=== PATIENT | female | born 1935 | race Caucasian/White ===

== ENCOUNTER → 2017-04-21 | Outpatient (CLI) | payer MEDICARE, BC ==
[2017-04-21 12:45] LABS: Basophils % (A) 0 %; Eosinophils # (A) 0.1 k/uL (0-0.7); Eosinophils % (A) 1 %; HCT 42.7 % (34.0-46.0); HGB 13.3 gm/dL (11.4-16.0); Lymphocytes # (A) 1.3 k/uL (1.0-4.8); Lymphocytes % (A) 17 %; MCH 30.8 pg (25.0-35.0); MCHC 31.2 g/dL (31.0-37.0); MCV 98.6 fL (80.0-100.0); Mean Platelet Volume 6.7; Monocytes # (A) 0.5 k/uL (0-1.0); Monocytes % (A) 7 %; Neutrophils # (A) 5.5 k/uL (1.3-7.7); Neutrophils % (A) 72 %; Platelet Count 335 k/uL (150-450); RBC 4.33 m/uL (3.80-5.40); RDW 13.1 % (11.5-15.5); WBC 7.7 k/uL (3.8-10.6)
[2017-04-21 13:00] LABS: ALT 28 U/L (9-52); AST 27 U/L (14-36); Albumin 4.8 g/dL (3.5-5.0); Alkaline Phosphatase 84 U/L (38-126); Anion Gap 12 mmol/L; Blood Urea Nitrogen 19 mg/dL (7-17); Calcium 10.9 mg/dL (8.4-10.2); Carbon Dioxide 25 mmol/L (22-30); Chloride 93 mmol/L (98-107); Glucose 90 mg/dL (74-99); Sodium 130 mmol/L (137-145); Total Bilirubin 0.7 mg/dL (0.2-1.3)
--- NOTE | 2017-04-21 13:41 | XR ---
EXAMINATION TYPE: XR chest 2V DATE OF EXAM: 04/21/2017 COMPARISON: March 12, 2015 HISTORY: Shortness of breath TECHNIQUE: Frontal and lateral views of the chest are obtained. FINDINGS: Scattered senescent parenchymal changes noted. Hyperinflation compatible with COPD. No evidence for infiltrate. No evidence for atelectasis. Heart size is stable. Mediastinal structures are stable and grossly unremarkable. No evidence for hilar prominence. Degenerative changes dorsal spine. IMPRESSION: 1. No evidence for acute pulmonary disease.
[2017-04-21 13:46] LABS: INR 1.1 (<1.2); Prothrombin Time 10.4 sec (9.0-12.0)
== END | disposition home or self-care (01) ==
LOC: LABMAIN 11:55
PROVIDERS: ATTEND Orthopaedic Surgery
DX: M19.071 Primary osteoarthritis, right ankle and foot (principal); M20.11 Hallux valgus (acquired), right foot; M20.5X1 Other deformities of toe(s) (acquired), right foot; M79.671 Pain in right foot
CPT/HCPCS: 36415; 71046; 80053; 85025; 85610; 85730

== ENCOUNTER → 2018-10-20 | Outpatient (CLI) | payer MEDICARE, BC ==
--- NOTE | 2018-10-21 08:31 | XR ---
EXAMINATION TYPE: XR foot complete RT DATE OF EXAM: 10/20/2018 CLINICAL HISTORY: Right foot pain and neuropathy TECHNIQUE: Frontal, lateral, and oblique images of the right foot are obtained. COMPARISON: None FINDINGS: There is no acute fracture/dislocation evident in the right foot. Joint spaces of the righ t foot are narrowed diffusely with opposing surface sclerosis and small marginal osteophytes througho ut the midfoot and forefoot. There is a hallux valgus deformity and there is subluxation laterally of the first through fourth metatarsophalangeal joints. Flexion deformity of the distal interphalangeal joints and proximal interphalangeal joints limits evaluation. Diffuse osseous demineralization is se en. No radiopaque foreign body is identified. Small plantar enthesophyte and calcifications along the plantar fascia. Small vessel atherosclerosis is also noted. IMPRESSION: 1. No acute fracture or dislocation in the right foot. 2. Extensive arthropathy of the right foot, hallux valgus deformity, lateral subluxation of the first through fourth metatarsophalangeal joints, small heel spur and diffuse osseous demineralization
--- NOTE | 2018-10-21 08:41 | XR ---
EXAMINATION TYPE: XR chest 2V DATE OF EXAM: 10/20/2018 COMPARISON: 04/21/2017 HISTORY: Shortness of breath TECHNIQUE: Frontal and lateral views of the chest are obtained. FINDINGS: Right basilar somewhat linear consolidation seen in the medial right lower lobe. Otherwise lungs are clear. There is no pleural effusion or pneumothorax seen. The cardiac silhouette size is within normal limits. Tortuosity of the aorta. Degenerative changes throughout the thoracic spine. Kiser rgical clips overlying the right breast. Severe degenerative changes of the right shoulder. IMPRESSION: Medial right lower lobe linear opacity may related to atelectasis, infiltrate or confluence of vessel s.
== END | disposition home or self-care (01) ==
LOC: RADXRMAIN 16:13
PROVIDERS: ATTEND Internal Medicine
DX: M20.11 Hallux valgus (acquired), right foot (principal); M12.871 Other specific arthropathies, not elsewhere classified, right ankle and foot; S93.331A Other subluxation of right foot, initial encounter; J98.4 Other disorders of lung; Z85.3 Personal history of malignant neoplasm of breast
CPT/HCPCS: 71046; 85027; 85652

== ENCOUNTER 2019-01-25 18:36 | Emergency (ER) | payer MEDICARE, BC ==
[2019-01-25 18:51] VITALS: RESP 18
--- NOTE | 2019-01-25 19:22 | ED ---
Fall HPI - General Chief Complaint: Fall Stated Complaint: fall/neck pain Time Seen by Provider: 01/25/19 18:41 Source: patient, EMS Mode of arrival: EMS - History of Present Illness Initial Comments: This is a 3-year-old female the ER. Patient is today after fall. Fall on her right arm and her head. Patient had a trip and fall again headache daily severely hitting her right arm. She has no blood thinners. No loss of consciousness. Patient denies any other injuries no headache chest pain shortness breath or abdominal pain. MD Complaint: fall -: days(s) Fall From: standing When Fall Occurred: 1 hour [employer] Fall Witnessed: yes, by family Place Fall Occurred: home Loss of Consciousness: none Prolonged Down Time?: no Symptoms Prior to Fall: none Location: head, face Location - Extremities: Right: Hand Severity: moderate Severity scale (1-10): 3 Quality: aching Context: tripped/slipped Associated Symptoms: denies - Related Data Home Medications Medication Instructions Recorded Confirmed Anastrozole [Arimidex] 1 mg PO QAM 04/16/14 03/12/15 Atenolol [Tenormin] 25 mg PO HS 04/16/14 03/12/15 Diltiazem HCl [Diltiazem 24Hr ER] 120 mg PO QAM 04/16/14 03/12/15 Losartan [Cozaar] 50 mg PO QAM 04/16/14 03/12/15 Multivitamins, Thera [Multivitamin 1 tab PO DAILY 04/16/14 03/12/15 (formulary)] Simvastatin [Zocor] 20 mg PO HS 04/16/14 03/12/15 Spironolactone [Aldactone] 25 mg PO QAM 04/16/14 03/12/15 Calcium Carbonate [Calcium] 600 mg PO BID 03/11/15 03/12/15 Cyanocobalamin [Vitamin B-12] 500 mg PO DAILY 03/11/15 03/12/15 Magnesium Gluconate [Magonate] 500 mg PO DAILY 03/11/15 03/12/15 traMADol HCl [Ultram] 50 mg PO DAILY PRN 03/11/15 03/12/15 Furosemide [Lasix] 40 mg PO DAILY 03/12/15 03/12/15 Warfarin [Coumadin] 5 mg PO DAILY 03/12/15 03/12/15 Previous Rx's Medication Instructions Recorded Acetaminophen Tab [Tylenol] 650 mg PO Q6HR PRN #0 tab 03/15/15 Atenolol [Tenormin] 25 mg PO HS tab 03/15/15 Bisacodyl [Dulcolax] 5 mg PO DAILY PRN #0 tablet. 03/15/15 Calcium Carbonate [Tums] 1 mg PO BID chew 03/15/15 Cyanocobalamin [Vitamin B-12] 500 mcg PO DAILY tab 03/15/15 Diltiazem Cd [Cardizem CD] 120 mg PO DAILY cap.er.24h 03/15/15 Furosemide [Lasix] 40 mg PO DAILY tab 03/15/15 Magnesium Gluconate [Magonate] 500 mg PO DAILY tab 03/15/15 Multivitamins, Thera [Multivitamin 1 each PO 1200 tab 03/15/15 (formulary)] Simvastatin [Zocor] 20 mg PO HS tab 03/15/15 Spironolactone [Aldactone] 25 mg PO QAM tab 03/15/15 Warfarin [Coumadin] 5 mg PO 1800 tab 03/15/15 traMADol HCl [Ultram] 50 mg PO DAILY PRN #0 tab 03/15/15 Allergies Allergy/AdvReac Type Severity Reaction Status Date / Time codeine Allergy Nausea & Verified 03/12/15 13:46 Vomiting Review of Systems ROS Statement: Those systems with pertinent positive or pertinent negative responses have been documented in the HPI. ROS Other: All systems not noted in ROS Statement are negative. Past Medical History Past Medical History: Atrial Fibrillation, Cancer, Hyperlipidemia, Hypertension Additional Past Medical History / Comment(s): varicose veins,arthritis,breast cancer History of Any Multi-Drug Resistant Organisms: None Reported Past Surgical History: Breast Surgery, Joint Replacement, Tonsillectomy Additional Past Surgical History / Comment(s): rt hip replacement, left knee replacement, cataracts, rt partial mastectomy Past Anesthesia/Blood Transfusion Reactions: Postoperative Nausea & Vomiting (PONV) Past Psychological History: No Psychological Hx Reported Smoking Status: Former smoker Past Alcohol Use History: None Reported Past Drug Use History: None Reported - Past Family History Father Family Medical History: Cancer Additional Family Medical History / Comment(s): lung General Exam Limitations: no limitations General appearance: alert, in no apparent distress Head exam: Present: normocephalic, normal inspection. Absent: atraumatic (Patient does have abrasion to right side of face) Eye exam: Present: normal appearance, PERRL, EOMI. Absent: scleral icterus, conjunctival injection, periorbital swelling ENT exam: Present: normal exam, mucous membranes moist Neck exam: Present: normal inspection. Absent: tenderness, meningismus, lymphadenopathy Respiratory exam: Present: normal lung sounds bilaterally. Absent: respiratory distress, wheezes, rales, rhonchi, stridor Cardiovascular Exam: Present: regular rate, normal rhythm, normal heart sounds. Absent: systolic murmur, diastolic murmur, rubs, gallop, clicks GI/Abdominal exam: Present: soft, normal bowel sounds. Absent: distended, tenderness, guarding, rebound, rigid Extremities exam: Present: normal inspection, full ROM, normal capillary refill. Absent: tenderness, pedal edema, joint swelling, calf tenderness Back exam: Present: normal inspection Neurological exam: Present: alert, oriented X3, CN II-XII intact Psychiatric exam: Present: normal affect, normal mood Skin exam: Present: warm, dry, intact, normal color. Absent: rash Course Vital Signs 01/25/19 18:39 Temperature 98.2 F Pulse Rate 65 Respiratory 18 Rate Blood Pressure 173/84 O2 Sat by Pulse 98 Oximetry - Reevaluation(s) Reevaluation #1: 01/25/19 19:21 Medical records reviewed Reevaluation #2: 01/25/19 19:21 Patient remains asymptomatic Reevaluation #3: 01/25/19 20:54 Spoke with patient at length findings, questions are answered. Patient feeling good stable for discharge able to ambulate Medical Decision Making - Medical Decision Making 83 female the mechanical trip and fall prior to arrival, going to answer the door. Patient did hit her head no to medication injury noted. Patient does have small skin tear of right hand that is displaced with Dermabond and nonstick bandaging. Patient discharged home - Radiology Data Radiology results: report reviewed (CT brain C-spine negative for acute disease), image reviewed Disposition Clinical Impression: Fall, Head injury Disposition: HOME SELF-CARE Condition: Good Instructions (If sedation given, give patient instructions): Fall Prevention for Older Adults (ED) Is patient prescribed a controlled substance at d/c from ED?: No Referrals: Hood Colon MD [Primary Care Provider] - 1-2 days
--- NOTE | 2019-01-25 20:19 | CT ---
EXAMINATION TYPE: CT brain demi graham con DATE OF EXAM: 01/25/2019 COMPARISON: March 11, 2015 HISTORY: fell/neck pain CT DLP: 1448 mGycm Automated exposure control for dose reduction was used. TECHNIQUE: CT scan of the head and cervical spine are performed without contrast. FINDINGS: There is some cerebral cortical atrophy. There is no mass effect nor midline shift. There is no sign of intracranial hemorrhage. There is hypodensity in the periventricular white matter. The calvarium is intact. Cervical vertebra have fairly normal alignment. There is degenerative disc space narrowing at C5-6 an d C6-7 with spurring of the endplates. There is multilevel mild hypertrophic facet arthropathy. The s kull base is intact. There is a transverse fracture through the base of the odontoid process. There i s 3 mm posterior displacement of the odontoid process. There is a fracture through the pedicle of C1 on the left side. IMPRESSION: Cerebral atrophy and chronic small vessel ischemia. No acute intracranial abnormality. Brain unchange d. Acute fracture of the base of the odontoid process with mild posterior displacement of the odontoid. 3 mm displacement. Left pedicle fracture of C1. IMPRESSION: 1. There is no acute fracture or dislocation evident in the cervical spine. 2. No acute intracranial hemorrhage, mass effect, or midline shift is seen.
[2019-01-25 21:24] VITALS: BP 152/70; PULSE 68; TEMP 97.9
== END 2019-01-25 21:24 | disposition home or self-care (01) ==
LOC: EC 18:36
DX: S00.81XA Abrasion of other part of head, initial encounter (principal); S61.411A Laceration without foreign body of right hand, initial encounter; I48.91 Unspecified atrial fibrillation; E78.5 Hyperlipidemia, unspecified; I10 Essential (primary) hypertension; M19.90 Unspecified osteoarthritis, unspecified site; Z87.891 Personal history of nicotine dependence; Z88.5 Allergy status to narcotic agent; Z79.01 Long term (current) use of anticoagulants; Z79.899 Other long term (current) drug therapy; Z85.3 Personal history of malignant neoplasm of breast; Z96.641 Presence of right artificial hip joint; Z96.652 Presence of left artificial knee joint; Z90.11 Acquired absence of right breast and nipple; W01.0XXA Fall on same level from slipping, tripping and stumbling without subsequent striking against object, initial encounter; Y93.01 Activity, walking, marching and hiking; Y92.009 Unspecified place in unspecified non-institutional (private) residence as the place of occurrence of the external cause
CPT/HCPCS: 12001; 70450; 72125; 99284

== ENCOUNTER 2019-02-02 13:55 | Inpatient (IN) | payer MEDICARE, BC ==
[2019-02-02] MEDS ORDERED: MORPHINE SULFATE 4 MG/ML SYRINGE IM STA (14:26)
[2019-02-02] MEDS ORDERED: ONDANSETRON ODT 4 MG TAB PO STA (14:26)
[2019-02-02] MEDS ORDERED: HYDROmorphone 1 MG/ML 1 ML SYRINGE IVP STA (14:51)
--- NOTE | 2019-02-02 15:13 | ED ---
General Adult HPI - General Chief complaint: Fall Stated complaint: Fall 1 week ago- R side Pain Time Seen by Provider: 02/02/19 14:07 Source: patient, RN notes reviewed, old records reviewed Mode of arrival: wheelchair Limitations: no limitations - History of Present Illness Initial comments: 83-year-old female patient presents emergency department for neck pain and headache. Patient was initially seen on 01/25/2019 for fall with trauma to the right side of her head and neck. At the time the CAT scan displayed to impressions. The impression to bother the patient displayed no acute process. However a second impression displayed a acute fracture the base of the odontoid process with mild posterior displacement of the odontoid 3 mm displacement. Left pedicle fracture of C1. Patient was discharged from the emergency department with a recognition of the fracture. Since ejection Hospital patient has had neck pain and right temporal headaches. Patient followed up with her primary care provider who reviewed the films identify the fracture. Patient was then sent the hospital. Patient complained this time as neck pain in the C1 region as well as right temporal headaches. Daughter reports the patient has had horrible pain for the last 4 days. Denies any upper or lower extremity weakness or paresthesias. Still ambulatory. Denies any other complaints. Systemic: Pt denies fatigue, fever/chills, rash. Pt denies weakness, night sweats, weight loss. Neuro: Pt denies visual disturbances, syncope or pre-syncope. HEENT: Pt denies ocular discharge or irritation, otalgia, rhinorrhea, pharyngitis or notable lymphadenopathy. Cardiopulmonary: Pt denies chest pain, SOB, heart palpitations, dyspnea on exertion. Abdominal/GI: Pt denies abdominal pain, n/v/d. : Pt denies dysuria, burning w/ urination, frequency/urgency. Denies new onset urinary or bowel incontinence. MSK: Pt denies myalgia, loss of strength or function in extremities. Neuro: Pt denies new onset weakness, paresthesias. - Related Data Home Medications Medication Instructions Recorded Confirmed Anastrozole [Arimidex] 1 mg PO QAM 04/16/14 03/12/15 Atenolol [Tenormin] 25 mg PO HS 04/16/14 03/12/15 Diltiazem HCl [Diltiazem 24Hr ER] 120 mg PO QAM 04/16/14 03/12/15 Losartan [Cozaar] 50 mg PO QAM 04/16/14 03/12/15 Multivitamins, Thera [Multivitamin 1 tab PO DAILY 04/16/14 03/12/15 (formulary)] Simvastatin [Zocor] 20 mg PO HS 04/16/14 03/12/15 Spironolactone [Aldactone] 25 mg PO QAM 04/16/14 03/12/15 Calcium Carbonate [Calcium] 600 mg PO BID 03/11/15 03/12/15 Cyanocobalamin [Vitamin B-12] 500 mg PO DAILY 03/11/15 03/12/15 Magnesium Gluconate [Magonate] 500 mg PO DAILY 03/11/15 03/12/15 traMADol HCl [Ultram] 50 mg PO DAILY PRN 03/11/15 03/12/15 Furosemide [Lasix] 40 mg PO DAILY 03/12/15 03/12/15 Warfarin [Coumadin] 5 mg PO DAILY 03/12/15 03/12/15 Previous Rx's Medication Instructions Recorded Acetaminophen Tab [Tylenol] 650 mg PO Q6HR PRN #0 tab 03/15/15 Atenolol [Tenormin] 25 mg PO HS tab 03/15/15 Bisacodyl [Dulcolax] 5 mg PO DAILY PRN #0 tablet. 03/15/15 Calcium Carbonate [Tums] 1 mg PO BID chew 03/15/15 Cyanocobalamin [Vitamin B-12] 500 mcg PO DAILY tab 03/15/15 Diltiazem Cd [Cardizem CD] 120 mg PO DAILY cap.er.24h 03/15/15 Furosemide [Lasix] 40 mg PO DAILY tab 03/15/15 Magnesium Gluconate [Magonate] 500 mg PO DAILY tab 03/15/15 Multivitamins, Thera [Multivitamin 1 each PO 1200 tab 03/15/15 (formulary)] Simvastatin [Zocor] 20 mg PO HS tab 03/15/15 Spironolactone [Aldactone] 25 mg PO QAM tab 03/15/15 Warfarin [Coumadin] 5 mg PO 1800 tab 03/15/15 traMADol HCl [Ultram] 50 mg PO DAILY PRN #0 tab 03/15/15 Allergies Allergy/AdvReac Type Severity Reaction Status Date / Time codeine Allergy Nausea & Verified 02/02/19 14:03 Vomiting Review of Systems ROS Statement: Those systems with pertinent positive or pertinent negative responses have been documented in the HPI. ROS Other: All systems not noted in ROS Statement are negative. Past Medical History Past Medical History: Atrial Fibrillation, Cancer, Hyperlipidemia, Hypertension Additional Past Medical History / Comment(s): varicose veins,arthritis,breast c ancer History of Any Multi-Drug Resistant Organisms: None Reported Past Surgical History: Breast Surgery, Joint Replacement, Tonsillectomy Additional Past Surgical History / Comment(s): rt hip replacement, left knee replacement, cataracts, rt partial mastectomy Past Anesthesia/Blood Transfusion Reactions: Postoperative Nausea & Vomiting (PONV) Past Psychological History: No Psychological Hx Reported Smoking Status: Former smoker Past Alcohol Use History: None Reported Past Drug Use History: None Reported - Past Family History Father Family Medical History: Cancer Additional Family Medical History / Comment(s): lung General Exam - General Exam Comments Initial Comments: Constitutional: NAD, AOX3, Pt has pleasant affect. HEENT: NC/AT, trachea midline, neck supple, no lymphadenopathy. Posterior pharynx non erythematous, without exudates. External ears appear normal, without discharge. Mucous membranes moist. Eyes PERRLA, EOM intact. There is no scleral icterus. No pallor noted. Cardiopulmonary: RRR, no murmurs, rubs or gallops, no JVD noted. Lungs CTAB in anterior and posterior marrufo. No peripheral edema. Abdominal exam: Abdomen soft and non-distended. Abdomen non-tender to palpation in all 4 quadrants. Bowel sounds active in LLQ. No hepatosplenomegaly. No ecchymosis Neuro: CN II-XII intact. No nuchal rigidity. No raccon eyes, no freeman sign, no hemotympanum. Cervical spine tender in C1 region. No upper or lower extremity deficit noted. MSK Skin tear of dorsal aspect of right hand appears to be healing. Small amount of discharge noted. No streaking. No posterior calf tenderness bilaterally, homans sign negative bilaterally. Posterior tibialis and radial pulse +2 bilaterally. Sensation intact in upper and lower extremities. Full active ROM in upper and lower extremities, 5/5 stregnth. Limitations: no limitations Course Vital Signs 02/02/19 14:00 Temperature 97.9 F Pulse Rate 83 Respiratory 20 Rate Blood Pressure 158/80 O2 Sat by Pulse 99 Oximetry Medical Decision Making - Medical Decision Making 83-year-old female patient presents emergency department for neck pain and headache. Patient was initially seen on 01/25/2019 for fall with trauma to the right side of her head and neck. At the time the CAT scan displayed to impressions. The impression to bother the patient displayed no acute process. However a second impression displayed a acute fracture the base of the odontoid process with mild posterior displacement of the odontoid 3 mm displacement. Left pedicle fracture of C1. Patient was discharged from the emergency department with a recognition of the fracture. Since ejection Hospital patient has had neck pain and right temporal headaches. Patient followed up with her primary care provider who reviewed the films identify the fracture. Patient was then sent the hospital. Patient complained this time as neck pain in the C1 region as well as right temporal headaches. Daughter reports the patient has had horrible pain for the last 4 days. Denies any upper or lower extremity weakness or paresthesias. Still ambulatory. Denies any other complaints. His vital signs stable, afebrile. Physical exam displayed normal neurologic exam. Active range of motion intact strength in upper or lower extremities. No temporal tenderness, no palpable cord. Skin tear of dorsal aspect of right hand appears to be healing. No streaking. Laboratory investigations revealed mild hyponatremia of 128. BUN mildly elevated. Plain film of hand was negative. CT of brain without contrast did not display acute process. Discussed case with Sumeet GARNER for Dr. Kowalski. Films were reviewed. They did not recommend any further imaging of neck. Recommend patient be placed in a Archer J collar. There is currently none of these collars available in the department. Patient will be kept in a hard collar until a more comfortable option is available. Patient will be made the hospital for pain control and orthopedic reevaluation. Case discussed in depth with Dr. Leung. - Lab Data Result diagrams: 02/02/19 16:38 02/02/19 16:38 Lab Results 02/02/19 02/02/19 02/02/19 Range/Units 16:38 16:38 16:38 WBC 8.9 (3.8-10.6) k/uL RBC 4.03 (3.80-5.40) m/uL Hgb 13.0 (11.4-16.0) gm/dL Hct 38.4 (34.0-46.0) % MCV 95.4 (80.0-100.0) fL MCH 32.2 (25.0-35.0) pg MCHC 33.7 (31.0-37.0) g/dL RDW 12.6 (11.5-15.5) % Plt Count 344 (150-450) k/uL Neutrophils % 77 % Lymphocytes % 15 % Monocytes % 5 % Eosinophils % 1 % Basophils % 1 % Neutrophils # 6.8 (1.3-7.7) k/uL Lymphocytes # 1.3 (1.0-4.8) k/uL Monocytes # 0.5 (0-1.0) k/uL Eosinophils # 0.1 (0-0.7) k/uL Basophils # 0.0 (0-0.2) k/uL PT 14.8 H (9.0-12.0) sec INR 1.5 H (<1.2) APTT 25.0 (22.0-30.0) sec Sodium 128 L (137-145) mmol/L Potassium 4.5 (3.5-5.1) mmol/L Chloride 97 L (98-107) mmol/L Carbon Dioxide 19 L (22-30) mmol/L Anion Gap 12 mmol/L BUN 25 H (7-17) mg/dL Creatinine 1.01 (0.52-1.04) mg/dL Est GFR (CKD-EPI)AfAm 59 (>60 ml/min/1.73 sqM) Est GFR (CKD-EPI)NonAf 51 (>60 ml/min/1.73 sqM) Glucose 154 H (74-99) mg/dL Calcium 10.7 H (8.4-10.2) mg/dL Total Bilirubin 0.7 (0.2-1.3) mg/dL AST 29 (14-36) U/L ALT 23 (9-52) U/L Alkaline Phosphatase 68 (38-126) U/L Total Protein 7.4 (6.3-8.2) g/dL Albumin 4.3 (3.5-5.0) g/dL Disposition Clinical Impression: Odontoid fracture, Headache, Intractable pain Disposition: ADMITTED IP TO THIS [facility] Condition: Serious Is patient prescribed a controlled substance at d/c from ED?: No Referrals: Hood Colon MD [Primary Care Provider] - 1-2 days
[2019-02-02] MEDS ORDERED: METOCLOPRAMIDE 5 MG/ML 2 ML VIAL IVP STA (15:29)
--- NOTE | 2019-02-02 16:01 | CT ---
EXAMINATION TYPE: CT brain wo con DATE OF EXAM: 02/02/2019 COMPARISON: None HISTORY: headache CT DLP: 1099.[address] of the brain was performed. The ventricles, basal cisterns and sulci overlying the cerebral convexities demonstrate mild enlargem ent. There is no evidence for intracranial hemorrhage or sulcal effacement. There is decreased attenuation about the periventricular white matter and deep white matter of both c erebral hemispheres, compatible with chronic small vessel ischemia. Differential diagnosis does inclu de demyelination. No mass effects are seen.No midline shift. Osseous calvarium is intact. If symptoms persist consider MRI. IMPRESSION: 1. Age related atrophic and chronic small vessel ischemic change without acute intracranial process s een at this time.
--- NOTE | 2019-02-02 16:25 | XR ---
EXAMINATION TYPE: XR hand complete RT DATE OF EXAM: 02/02/2019 CLINICAL HISTORY: pain TECHNIQUE: Frontal, lateral and oblique images of the right hand are obtained. COMPARISON: None. FINDINGS: There is no acute fracture/dislocation evident. Severe degenerative change first carpal me tacarpal joint. The overlying soft tissue appears unremarkable. IMPRESSION: There is no acute fracture or dislocation ICD 10 NO FRACTURE, INITIAL EVALUATION
[2019-02-02] MEDS ORDERED: cefTRIAXone IN SWFI 1,000 MG/10 ML SYRINGE IVP STA (16:30)
[2019-02-02 16:47] LABS: Basophils % (A) 1 %; Eosinophils # (A) 0.1 k/uL (0-0.7); Eosinophils % (A) 1 %; HCT 38.4 % (34.0-46.0); Lymphocytes # (A) 1.3 k/uL (1.0-4.8); Lymphocytes % (A) 15 %; MCH 32.2 pg (25.0-35.0); MCHC 33.7 g/dL (31.0-37.0); MCV 95.4 fL (80.0-100.0); Mean Platelet Volume 6.7; Monocytes # (A) 0.5 k/uL (0-1.0); Monocytes % (A) 5 %; Neutrophils # (A) 6.8 k/uL (1.3-7.7); Neutrophils % (A) 77 %; Platelet Count 344 k/uL (150-450); RBC 4.03 m/uL (3.80-5.40); RDW 12.6 % (11.5-15.5); WBC 8.9 k/uL (3.8-10.6)
[2019-02-02 16:55] LABS: Albumin 4.3 g/dL (3.5-5.0); Calcium 10.7 mg/dL (8.4-10.2); Potassium 4.5 mmol/L (3.5-5.1); Total Bilirubin 0.7 mg/dL (0.2-1.3); Total Protein 7.4 g/dL (6.3-8.2)
[2019-02-02 16:59] LABS: INR 1.5 (<1.2); Prothrombin Time 14.8 sec (9.0-12.0)
[2019-02-02] MEDS ORDERED: SODIUM CHLORIDE 0.9% 500 ML 500 ML IV STA (17:04)
[2019-02-02] MEDS ORDERED: NALOXONE 0.4 MG/ML 1 ML VIAL IV PRN (17:24)
[2019-02-02] MEDS ORDERED: MORPHINE SULFATE 4 MG/ML SYRINGE IV PRN (17:24)
[2019-02-02] MEDS ORDERED: ONDANSETRON ODT 4 MG TAB PO PRN (17:26)
[2019-02-02] MEDS: SODIUM CHLORIDE 0.9% 1,000 ML IV SCH (18:31)
[2019-02-02] MEDS: ACETAMINOPHEN TAB 325 MG TAB PO PRN (21:46)
[2019-02-03] MEDS ORDERED: ACETAMINOPHEN TAB 325 MG TAB ONE (03:20)
[2019-02-03] MEDS: DILTIAZEM CD 120 MG CAP.ER.24H PO SCH (07:45)
[2019-02-03] MEDS: ATENOLOL 25 MG TAB PO SCH (07:45)
[2019-02-03] MEDS: ATORVASTATIN 10 MG TAB PO SCH (07:45)
[2019-02-03] MEDS: LOSARTAN 50 MG TAB PO SCH (07:46)
[2019-02-03] MEDS: ACETAMINOPHEN TAB 325 MG TAB PO PRN ×3 (07:47→21:42)
[2019-02-03] MEDS: SODIUM CHLORIDE 0.9% 1,000 ML IV SCH ×3 (07:49→19:37)
[2019-02-03] MEDS ORDERED: SPIRONOLACTONE 25 MG TAB PO SCH (09:00)
[2019-02-03] MEDS ORDERED: FUROSEMIDE 20 MG TAB PO SCH (09:00)
[2019-02-03] MEDS: traMADol 50 MG TAB PO PRN ×2 (11:35→17:17)
--- NOTE | 2019-02-03 12:15 | P.CNOR ---
History of Present Illness - [facility] Consult date: 02/03/19 Requesting physician: Abdiaziz Baker Consult reason: fracture (C2 odontoid fracture and C1 pedicle fracture), neck pain History of present illness: Patient is a very pleasant 83-year-old female who is seen and examined at bedside for further evaluation for C2 odontoid fracture and C1 pedicle fracture. Patient sustained a fall on 01/25/2019. She presented to the emergency department at that time. CT imaging was taken. She states there were no significant findings at that time and she was discharged home. She continues to experience cervical pain along with significant right-sided headache. She does have bruising on her right forearm and over the right forehead following her fall. She continues experience increase cervical pain. During evaluation [facility] department her previous cervical computed tomography scan was further reviewed which did show evidence of a C2 odontoid fracture and C1 pedicle fracture. The documentation of the fractures was previously document in the body of the report of the CT imaging did not on the impression. Patient was previously discharged home without bracing. Patient was fitted with a collar during this admission in the emergency department. Patient was experiencing significant right-sided headache at the forehead during her presentation emergency department. CT brain was performed at that time without evidence of acute findings. She was admitted for further evaluation for pain control. She continues to complain of significant right-sided headache over her right forehead. She does not feel her pain is been adequately controlled with Tylenol. She would like to avoid morphine. She is not currently experiencing any difficulty with the bilateral upper extremities. Patient states at the bedside due to her age she would like to currently work to conservative treatment options. Patient does have a medical history includes atrial fibrillation, hyperlipidemia, hypertension, and cancer. Past Medical History Past Medical History: Atrial Fibrillation, Cancer, Hyperlipidemia, Hypertension Additional Past Medical History / Comment(s): varicose veins,arthritis,breast cancer; pt states she has neuropathy in bilat feet History of Any Multi-Drug Resistant Organisms: None Reported Past Surgical History: Breast Surgery, Joint Replacement, Tonsillectomy Additional Past Surgical History / Comment(s): rt hip replacement, left knee replacement, cataracts, rt partial mastectomy Past Anesthesia/Blood Transfusion Reactions: Postoperative Nausea & Vomiting (PONV) Past Psychological History: No Psychological Hx Reported Smoking Status: Former smoker Past Alcohol Use History: None Reported Past Drug Use History: None Reported - Past Family History Father Family Medical History: Cancer Additional Family Medical History / Comment(s): lung Medications and Allergies Home Medications Medication Instructions Recorded Confirmed Type Warfarin [Coumadin] 5 mg PO DAILY 03/12/15 02/02/19 History Diltiazem Cd [Cardizem CD] 120 mg PO DAILY cap.er.24h 03/15/15 02/02/19 Rx Atenolol [Tenormin] 25 mg PO DAILY 02/02/19 02/02/19 History Candesartan Cilexetil [Atacand] 16 mg PO DAILY 02/02/19 02/02/19 History Furosemide [Lasix] 20 mg PO DAILY 02/02/19 02/02/19 History Simvastatin [Zocor] 20 mg PO DAILY 02/02/19 02/02/19 History Spironolactone [Aldactone] 25 mg PO DAILY 02/02/19 02/02/19 History Allergies Allergy/AdvReac Type Severity Reaction Status Date / Time codeine Allergy Nausea & Verified 02/02/19 18:41 Vomiting Physical Examination Physical exam: Patient is awake, alert, and oriented 3 Vital signs stable Good chest excursion with deep inspiration and expiration Abdomen soft nontender Examination of the cervical spine reveals skin is intact with no abrasions, lacerations, or bruises; no erythema, purulence or signs of infection Some pain with palpation of the posterior cervical spine Hard cervical collar intact Evidence of bruising on her right forearm Evidence of bruing and mild swelling over the right forehead Reduced of motion of the cervical spine with adequate flexion, extension, and bilateral rotation [employer] strength, thumb strength, interosseous strength, biceps strength, triceps strength, and shoulder strength positive sustained bilaterally Results Pertinent studies: CT of the head and cervical spine taken on 01/25/2019: Acute fracture the base of the odontoid process with small posterior displacement of approximately 3 mm and left C1 pedicle fracture; C5-6 and C6-7 degenerative disc disease with osteophytic spurring; multilevel facet hypertrophy; no acute intracranial hemorrhage, mass effect, or midline shift is seen X-rays of the right hand taken on 02/02/2019: No acute fracture dislocation CT of the brain taken 02/02/2019: Age-related atrophic and chronic small vessel ischemic change without evidence of acute intracranial process seen at this time - Labs Labs: Abnormal Lab Results - Last 24 Hours (Table) 02/02/19 02/02/19 Range/Units 16:38 16:38 PT 14.8 H (9.0-12.0) sec INR 1.5 H (<1.2) Sodium 128 L (137-145) mmol/L Chloride 97 L (98-107) mmol/L Carbon Dioxide 19 L (22-30) mmol/L BUN 25 H (7-17) mg/dL Glucose 154 H (74-99) mg/dL Calcium 10.7 H (8.4-10.2) mg/dL H & H 02/02/19 Range/Units 16:38 Hgb 13.0 (11.4-16.0) gm/dL Hct 38.4 (34.0-46.0) % Coagulation 02/02/19 Range/Units 16:38 INR 1.5 H (<1.2) Result Diagrams: 02/02/19 16:38 02/02/19 16:38 Assessment and Plan Assessment: Assessment: C2 odontoid fracture C1 left pedicle fracture Status post fall Cervicalgia Right-sided anterior headache C5-6 and C6-7 degenerative disc disease with anterior osteophytic spurring Cervical facet spondylosis Headache (1) C1 cervical fracture Current Visit: Yes Status: Acute Code(s): S12.000A - UNSP DISP FX OF FIRST CERVICAL VERTEBRA, INIT FOR CLOS FX SNOMED Code(s): 375363999 (2) Status post fall Current Visit: Yes Status: Acute Code(s): Z91.81 - HISTORY OF FALLING SNOMED Code(s): 161255933 (3) Cervicalgia Current Visit: Yes Status: Acute Code(s): M54.2 - CERVICALGIA SNOMED Code (s): 04614873 (4) Degeneration of C5-C6 intervertebral disc Current Visit: Yes Status: Acute Code(s): M50.322 - OTHER CERVICAL DISC DEGENERATION AT C5-C6 LEVEL SNOMED Code(s): 43801305 (5) Degeneration of intervertebral disc at C6-C7 level Current Visit: Yes Status: Acute Code(s): M50.323 - OTHER CERVICAL DISC DEGENERATION AT C6-C7 LEVEL SNOMED Code(s): 85892108 (6) Headache Current Visit: Yes Status: Acute Code(s): R51 - HEADACHE SNOMED Code(s): 45459303 (7) Intractable pain Current Visit: Yes Status: Acute Code(s): R52 - PAIN, UNSPECIFIED SNOMED Code(s): 90643793 (8) Odontoid fracture Current Visit: Yes Status: Acute Code(s): S12.110A - ANTERIOR DISPLACED TYPE II DENS FRACTURE, INIT FOR CLOS FX SNOMED Code(s): 461477302 (9) Contusion of forehead Current Visit: No Status: Acute Code(s): S00.83XA - CONTUSION OF OTHER PART OF HEAD, INITIAL ENCOUNTER SNOMED Code(s): 753618238 Plan: Plan: 1. After physical examination patient, reviewing the imaging, and further discussion with the patient, will currently planned to continue conservative treatment options. Patient does have evidence of minimally displaced C2 odontoid fracture and left C1 pedicle fracture. She was placed in a fairly flimsy hard cervical collar in the emergency department. At this time we will plan to prescribe a more robust hard cervical collar. Prescriptions written for a [place] hard cervical collar. Prescription is signed provided to case management. We discussed patient should wear this brace at all times. She may wear the brace provided the ER while showering but should keep the [place] hard cervical collar on at all other times. At this time she would like to work to conservative treatment options given her age. We did discuss if she were to fail conservative treatment options, she would be For surgical intervention. We discussed surgical intervention would entail screw placement through the odontoid. At this time, once for [place] hard collar is delivered and fitted probably, patient weekly for discharge from an orthopedic spine standpoint. We will plan have her follow-up in the outpatient setting with Dr. kevin SOSA or Dr. Jim Del Valle at [facility] in 1 week for further evaluation. 2. Continue pain control with medication as prescribed. Patient is having significant difficulty with pain control. Will currently planned to add Ultram 50 mg 1-2 tabs every 6 hours as needed for pain. She may continue with Tylenol as prescribed. She has been prescribed morphine but is avoiding this medication and like to try something not as potent. 3. Patient will continue to see exam by trauma surgery Time with Patient: Greater than 30 (Including obtaining history, physical examination, reviewing of imaging, and dictation.)
[2019-02-03 13:19] LABS: HCT 38.2 % (34.0-46.0); HGB 12.5 gm/dL (11.4-16.0); MCH 31.9 pg (25.0-35.0); MCHC 32.7 g/dL (31.0-37.0); MCV 97.3 fL (80.0-100.0); Platelet Count 286 k/uL (150-450); RBC 3.92 m/uL (3.80-5.40); RDW 12.9 % (11.5-15.5); WBC 7.1 k/uL (3.8-10.6)
[2019-02-03 13:30] LABS: INR 1.8 (<1.2); Prothrombin Time 17.5 sec (9.0-12.0)
[2019-02-03 13:43] LABS: Calcium 10.4 mg/dL (8.4-10.2); Potassium 4.7 mmol/L (3.5-5.1)
--- NOTE | 2019-02-03 14:26 | P.GSHP ---
History of Present Illness H&P Date: 02/03/19 Chief Complaint: neck pain CHIEF COMPLAINT: cervical fracture HISTORY OF PRESENT ILLNESS: 83-year-old female who recently sustained a fall on 01/25/19. Patient was evaluated in the emergency room at that time and discharged home. Patient reports since that time she has been having headaches and severe neck pain. Patient states her primary care physician reviewed her CT and immediately sent her back to the hospital. Patient denies any other concerns of complaints besides headache and neck pain. PAST MEDICAL HISTORY: See list. PAST SURGICAL HISTORY: See list. SOCIAL HISTORY: No illicit drug use. REVIEW OF SYSTEMS: CONSTITUTIONAL: Denies fever or chills. Reports recent fall. HEENT: Denies blurred vision, vision changes, or eye pain. Denies hemoptysis. Reports headaches. Reports neck pain. CARDIOVASCULAR: Denies chest pain or pressure. RESPIRATORY: No shortness of breath. GASTROINTESTINAL: Denies abdominal pain. Denies nausea or vomiting. HEMATOLOGIC: Denies bleeding disorders. GENITOURINARY: Denies any blood in urine. SKIN: Denies pruitis. Denies rash. PHYSICAL EXAM: VITAL SIGNS: Reviewed. GENERAL: Well-developed in no acute distress. HEENT: No sclera icterus. Extraocular movements grossly intact. Moist buccal mucosa. Ecchymosis on right side of forehead. Patient currently in a hard cervical collar. ABDOMEN: Soft. Nondistended. Nontender. . NEUROLOGIC: Alert and oriented. Cranial nerves II through XII grossly intact. LABORATORY DATA: Laboratory data on admission reveals white count 8.9. Hemoglobin 13.0. Platelet count .344. INR 1.5. Sodium 128. Potassium 4.5. BUN 25. Creatinine 1.01. Bilirubin 0.7. AST 29. ALT 23. IMAGIN. CT of the head and cervical spine taken on 01/25/2019: Acute fracture the base of the odontoid process with small posterior displacement of approximately 3 mm and left C1 pedicle fracture; C5-6 and C6-7 degenerative disc disease with osteophytic spurring; multilevel facet hypertrophy; no acute intracranial hemorrhage, mass effect, or midline shift is seen 2. X-rays of the right hand taken on 02/02/2019: No acute fracture dislocation 3. CT of the brain taken 02/02/2019: Age-related atrophic and chronic small vessel ischemic change without evidence of acute intracranial process seen at this time ASSESSMENT: 1. Recent fall 2. Neck pain 3. Headache 4. C2 odontoid fracture 5. C1 left pedicle fracture 6. History of atrial fibrillation, on long-term anticoagulation with Coumadin PLAN: 1. Orthopedics on consult. Plan for [place] J collar and conservative management 2. Pain control 3. No surgical intervention recommended from a general surgery standpoint 4. [facility] hospitalists consulted for medical management. Will transfer admission to their service. Nurse practitioner note has been reviewed by physician. Signing provider agrees with the documented findings, assessment, and plan of care. Past Medical History Past Medical History: Atrial Fibrillation, Cancer, Hyperlipidemia, Hypertension Additional Past Medical History / Comment(s): varicose veins,arthritis,breast cancer; pt states she has neuropathy in bilat feet History of Any Multi-Drug Resistant Organisms: None Reported Past Surgical History: Breast Surgery, Joint Replacement, Tonsillectomy Additional Past Surgical History / Comment(s): rt hip replacement, left knee replacement, cataracts, rt partial mastectomy Past Anesthesia/Blood Transfusion Reactions: Postoperative Nausea & Vomiting (PONV) Past Psychological History: No Psychological Hx Reported Smoking Status: Former smoker Past Alcohol Use History: None Reported Past Drug Use History: None Reported - Past Family History Father Family Medical History: Cancer Additional Family Medical History / Comment(s): lung Medications and Allergies Home Medications Medication Instructions Recorded Confirmed Type Warfarin [Coumadin] 5 mg PO DAILY 03/12/15 02/02/19 History Diltiazem Cd [Cardizem CD] 120 mg PO DAILY cap.er.24h 03/15/15 02/02/19 Rx Atenolol [Tenormin] 25 mg PO DAILY 02/02/19 02/02/19 History Candesartan Cilexetil [Atacand] 16 mg PO DAILY 02/02/19 02/02/19 History Furosemide [Lasix] 20 mg PO DAILY 02/02/19 02/02/19 History Simvastatin [Zocor] 20 mg PO DAILY 02/02/19 02/02/19 History Spironolactone [Aldactone] 25 mg PO DAILY 02/02/19 02/02/19 History Allergies Allergy/AdvReac Type Severity Reaction Status Date / Time codeine Allergy Nausea & Verified 02/02/19 18:41 Vomiting Surgical - Exam Vital Signs Temp Pulse Resp BP Pulse Ox 97.9 F 83 20 158/80 99 02/02/19 14:00 02/02/19 14:00 02/02/19 14:00 02/02/19 14:00 02/02/19 14:00 Results - Labs 02/03/19 12:14 02/03/19 12:14 Abnormal Lab Results - Last 24 Hours (Table) 02/02/19 02/02/19 02/03/19 Range/Units 16:38 16:38 12:14 PT 14.8 H (9.0-12.0) sec INR 1.5 H (<1.2) Sodium 128 L 131 L (137-145) mmol/L Chloride 97 L (98-107) mmol/L Carbon Dioxide 19 L (22-30) mmol/L BUN 25 H 21 H (7-17) mg/dL Glucose 154 H (74-99) mg/dL Calcium 10.7 H 10.4 H (8.4-10.2) mg/dL 02/03/19 Range/Units 12:14 PT 17.5 H (9.0-12.0) sec INR 1.8 H (<1.2) Sodium (137-145) mmol/L Chloride (98-107) mmol/L Carbon Dioxide (22-30) mmol/L BUN (7-17) mg/dL Glucose (74-99) mg/dL Calcium (8.4-10.2) mg/dL Diabetes panel 02/02/19 02/03/19 Range/Units 16:38 12:14 Sodium 128 L 131 L (137-145) mmol/L Potassium 4.5 4.7 (3.5-5.1) mmol/L Chloride 97 L 98 (98-107) mmol/L Carbon Dioxide 19 L 26 (22-30) mmol/L BUN 25 H 21 H (7-17) mg/dL Creatinine 1.01 0.83 (0.52-1.04) mg/dL Glucose 154 H 90 (74-99) mg/dL Calcium 10.7 H 10.4 H (8.4-10.2) mg/dL AST 29 (14-36) U/L ALT 23 (9-52) U/L Alkaline Phosphatase 68 (38-126) U/L Total Protein 7.4 (6.3-8.2) g/dL Albumin 4.3 (3.5-5.0) g/dL Calcium panel 02/02/19 02/03/19 Range/Units 16:38 12:14 Calcium 10.7 H 10.4 H (8.4-10.2) mg/dL Albumin 4.3 (3.5-5.0) g/dL Pituitary panel 02/02/19 02/03/19 Range/Units 16:38 12:14 Sodium 128 L 131 L (137-145) mmol/L Potassium 4.5 4.7 (3.5-5.1) mmol/L Chloride 97 L 98 (98-107) mmol/L Carbon Dioxide 19 L 26 (22-30) mmol/L BUN 25 H 21 H (7-17) mg/dL Creatinine 1.01 0.83 (0.52-1.04) mg/dL Glucose 154 H 90 (74-99) mg/dL Calcium 10.7 H 10.4 H (8.4-10.2) mg/dL Adrenal panel 02/02/19 02/03/19 Range/Units 16:38 12:14 Sodium 128 L 131 L (137-145) mmol/L Potassium 4.5 4.7 (3.5-5.1) mmol/L Chloride 97 L 98 (98-107) mmol/L Carbon Dioxide 19 L 26 (22-30) mmol/L BUN 25 H 21 H (7-17) mg/dL Creatinine 1.01 0.83 (0.52-1.04) mg/dL Glucose 154 H 90 (74-99) mg/dL Calcium 10.7 H 10.4 H (8.4-10.2) mg/dL Total Bilirubin 0.7 (0.2-1.3) mg/dL AST 29 (14-36) U/L ALT 23 (9-52) U/L Alkaline Phosphatase 68 (38-126) U/L Total Protein 7.4 (6.3-8.2) g/dL Albumin 4.3 (3.5-5.0) g/dL
[2019-02-03] MEDS ORDERED: POLYETHYLENE GLYCOL 3350 17 GM POWD.PACK PO PRN (14:40)
[2019-02-03] MEDS ORDERED: BISACODYL 5 MG TABLET.DR PO PRN (14:40)
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
[2019-02-03] MEDS: MUPIROCIN 2% OINT 22 GM TUBE TOPICAL SCH ×2 (16:25→21:42)
[2019-02-03] MEDS: WARFARIN 5 MG TAB PO SCH (17:17)
--- NOTE | 2019-02-03 21:04 | ED ---
Medical Decision Making - Medical Decision Making Addendum due to dictation errors secondary to dictation software: 83-year-old female patient presents emergency department for neck pain and headache. Patient was initially seen on 01/25/2019 for fall with trauma to the right side of her head and neck. At the time of evaluation the CT scan of brain c spine displayed two impressions. The bottom impression of the CT was read as negative. However the impression above it displayed a odontoid fracture with mild posterior displacement of the odontoid 3 mm displacement. Left pedicle fracture of C1. Patient was discharged from the emergency department at that time without recognition of the fracture. Since discharge patient has been experiencing neck pain and right temporal headaches. Patient followed up with her primary care provider who reviewed the films and identify the fracture. Patient was then sent directly to hospital. Patient complained this time as neck pain in the C1 region as well as right temporal headaches. Daughter reports the patient has had horrible pain for the last 4 days. Denies any upper or lower extremity weakness or paresthesias. Still ambulatory. Denies any other complaints. Systemic: Pt denies fatigue, fever/chills, rash. Pt denies weakness, night sweats, weight loss. Neuro: Pt denies visual disturbances, syncope or pre-syncope. HEENT: Pt denies ocular discharge or irritation, otalgia, rhinorrhea, pharyngitis or notable lymphadenopathy. Cardiopulmonary: Pt denies chest pain, SOB, heart palpitations, dyspnea on exertion. Abdominal/GI: Pt denies abdominal pain, n/v/d. : Pt denies dysuria, burning w/ urination, frequency/urgency. Denies new onset urinary or bowel incontinence. MSK: Pt denies myalgia, loss of strength or function in extremities. Neuro: Pt denies new onset weakness, paresthesias. Physical exam: Constitutional: NAD, AOX3, Pt has pleasant affect. HEENT: NC/AT, trachea midline, neck supple, no lymphadenopathy. Posterior pharynx non erythematous, without exudates. External ears appear normal, without discharge. Mucous membranes moist. Eyes PERRLA, EOM intact. There is no scleral icterus. No pallor noted. Cardiopulmonary: RRR, no murmurs, rubs or gallops, no JVD noted. Lungs CTAB in anterior and posterior marrufo. No peripheral edema. Abdominal exam: Abdomen soft and non-distended. Abdomen non-tender to palpation in all 4 quadrants. Bowel sounds active in LLQ. No hepatosplenomegaly. No ecchymosis Neuro: CN II-XII intact. No nuchal rigidity. No raccon eyes, no freeman sign, no hemotympanum. Cervical spine tender in C1 region. No upper or lower extremity deficit noted. MSK Skin tear of dorsal aspect of right hand appears to be healing. Small amount of discharge noted. No streaking. No posterior calf tenderness bilaterally, homans sign negative bilaterally. Posterior tibialis and radial pulse +2 mauricio aterally. Sensation intact in upper and lower extremities. Full active ROM in upper and lower extremities, 5/5 stregnth. MDM: 83-year-old female patient presents to emergency department with neck pain and headache. Patient was seen by her primary care provider identified a fracture on a CAT scan from 01/25. Reports that the headaches are right temporal. Patient vital signs signs are stable, afebrile. Physical exam displayed a normal neurologic exam. No deficits noted. Cervical spine tender at C1. No palpable cords sign of temporal arteritis. A CT of the brain was performed which displayed age-related atrophic and chronic small vessel ischemic changes without acute intracranial process. Case was discussed with physician casting assistant for Dr. Meghana Werner. They reviewed the films and recommended placing patient in a [place] J brace. This was not available in emergency department. Multiple attempts were made to contact outside medical supplies facilities as well as the Hospital medical supplier. They did not have the [place] J brace or any other suitable option. Multiple attempts were made to contact Dr. Kowalski which were unsuccessful. Patient was admitted with the emergency department c-collar. Patient was admitted for pain control and orthopedic management. Symptoms were much improved upon admission. Case discussed with Dr. Leung. - Lab Data Result diagrams: 02/03/19 12:14 02/03/19 12:14 Lab Results 02/02/19 02/02/19 02/02/19 Range/Units 16:38 16:38 16:38 WBC 8.9 (3.8-10.6) k/uL RBC 4.03 (3.80-5.40) m/uL Hgb 13.0 (11.4-16.0) gm/dL Hct 38.4 (34.0-46.0) % MCV 95.4 (80.0-100.0) fL MCH 32.2 (25.0-35.0) pg MCHC 33.7 (31.0-37.0) g/dL RDW 12.6 (11.5-15.5) % Plt Count 344 (150-450) k/uL Neutrophils % 77 % Lymphocytes % 15 % Monocytes % 5 % Eosinophils % 1 % Basophils % 1 % Neutrophils # 6.8 (1.3-7.7) k/uL Lymphocytes # 1.3 (1.0-4.8) k/uL Monocytes # 0.5 (0-1.0) k/uL Eosinophils # 0.1 (0-0.7) k/uL Basophils # 0.0 (0-0.2) k/uL PT 14.8 H (9.0-12.0) sec INR 1.5 H (<1.2) APTT 25.0 (22.0-30.0) sec Sodium 128 L (137-145) mmol/L Potassium 4.5 (3.5-5.1) mmol/L Chloride 97 L (98-107) mmol/L Carbon Dioxide 19 L (22-30) mmol/L Anion Gap 12 mmol/L BUN 25 H (7-17) mg/dL Creatinine 1.01 (0.52-1.04) mg/dL Est GFR (CKD-EPI)AfAm 59 (>60 ml/min/1.73 sqM) Est GFR (CKD-EPI)NonAf 51 (>60 ml/min/1.73 sqM) Glucose 154 H (74-99) mg/dL Calcium 10.7 H (8.4-10.2) mg/dL Total Bilirubin 0.7 (0.2-1.3) mg/dL AST 29 (14-36) U/L ALT 23 (9-52) U/L Alkaline Phosphatase 68 (38-126) U/L Total Protein 7.4 (6.3-8.2) g/dL Albumin 4.3 (3.5-5.0) g/dL Disposition Clinical Impression: Odontoid fracture, Headache, Intractable pain Disposition: ADMITTED IP TO THIS [facility] Condition: Serious Is patient prescribed a controlled substance at d/c from ED?: No
[2019-02-04] MEDS: ATENOLOL 25 MG TAB PO SCH (07:56)
[2019-02-04] MEDS: ATORVASTATIN 10 MG TAB PO SCH (07:56)
[2019-02-04] MEDS: LOSARTAN 50 MG TAB PO SCH (07:57)
[2019-02-04] MEDS: DILTIAZEM CD 120 MG CAP.ER.24H PO SCH (07:57)
[2019-02-04] MEDS: MUPIROCIN 2% OINT 22 GM TUBE TOPICAL SCH ×3 (07:57→23:08)
[2019-02-04] MEDS: traMADol 50 MG TAB PO PRN ×2 (08:01→17:28)
[2019-02-04 09:34] LABS: INR 2.2 (<1.2); Prothrombin Time 21.7 sec (9.0-12.0)
[2019-02-04 09:48] LABS: HGB 13.2 gm/dL (11.4-16.0); MCH 32.9 pg (25.0-35.0); MCHC 33.9 g/dL (31.0-37.0); Mean Platelet Volume 6.3; Platelet Count 320 k/uL (150-450); RBC 4.02 m/uL (3.80-5.40); RDW 12.9 % (11.5-15.5); WBC 8.3 k/uL (3.8-10.6)
[2019-02-04 10:03] LABS: Calcium 10.3 mg/dL (8.4-10.2); Potassium 4.8 mmol/L (3.5-5.1)
--- NOTE | 2019-02-04 10:18 | P.PN ---
<Anita De Guzman - Last Filed: 02/04/19 10:16> Subjective Progress Note Date: 02/04/19 CHIEF COMPLAINT: cervical fracture HISTORY OF PRESENT ILLNESS: Patient examined this morning. She is sitting up in the chair. [place] J collar has been placed. Patient continues to report neck pain and a headache, but she believes it is improved since yesterday. Tolerating diet. Denies nausea or vomiting. PHYSICAL EXAM: VITAL SIGNS: Reviewed. GENERAL: Well-developed in no acute distress. HEENT: No sclera icterus. Extraocular movements grossly intact. Moist buccal mucosa. Ecchymosis on right side of forehead. Patient currently in a hard cervical collar. ABDOMEN: Soft. Nondistended. Nontender. NEUROLOGIC: Alert and oriented. Cranial nerves II through XII grossly intact. ASSESSMENT: 1. Recent fall 2. Neck pain 3. Headache 4. C2 odontoid fracture 5. C1 left pedicle fracture 6. History of atrial fibrillation, on long-term anticoagulation with Coumadin PLAN: 1. Orthopedics on consult. [place] J collar has been obtained. Plan is for conservative management per their dictation 2. Pain control 3. Medical management per [facility] hospitalist 4. No surgical intervention recommended from a general surgery standpoint Nurse practitioner note has been reviewed by physician. Signing provider agrees with the documented findings, assessment, and plan of care. Objective - Vital Signs Vital signs: Vital Signs Temp 96.8 F L 02/04/19 05:00 Pulse 67 02/04/19 05:00 Resp 18 02/04/19 05:00 BP 158/73 02/04/19 05:00 Pulse Ox 96 02/04/19 05:00 Intake & Output 02/03/19 02/04/19 02/04/19 18:59 06:59 18:59 Intake Total 80 700 Balance 80 700 Intake: Intake, IV Titration 580 Amount Sodium Chloride 0.9% 1, 580 000 ml @ 80 mls/hr IV . [id number] [facility] Rx#:[id number] Oral 80 120 Other: Voiding Method Bedpan Bedside Commode Toilet Bedpan Bedside Commode # Voids 1 1 - Labs CBC & Chem 7: 02/04/19 08:31 02/04/19 08:31 Labs: Abnormal Lab Results - Last 24 Hours (Table) 02/03/19 02/03/19 02/04/19 Range/Units 12:14 12:14 08:31 PT 17.5 H 21.7 H (9.0-12.0) sec INR 1.8 H 2.2 H (<1.2) Sodium 131 L (137-145) mmol/L Chloride (98-107) mmol/L BUN 21 H (7-17) mg/dL Glucose (74-99) mg/dL Calcium 10.4 H (8.4-10.2) mg/dL 02/04/19 Range/Units 08:31 PT (9.0-12.0) sec INR (<1.2) Sodium 132 L (137-145) mmol/L Chloride 96 L (98-107) mmol/L BUN (7-17) mg/dL Glucose 146 H (74-99) mg/dL Calcium 10.3 H (8.4-10.2) mg/dL <Arturo Fernandez - Last Filed: 02/04/19 19:05> Subjective As above. Patient says her neck pain is improving. No surgical plans per orthopedics at this time. We'll sign off. Please call if needed. Objective - Vital Signs Vital signs: Vital Signs Temp 98.0 F 02/04/19 14:37 Pulse 54 L 02/04/19 14:37 Resp 20 02/04/19 14:37 BP 99/61 02/04/19 14:37 Pulse Ox 94 L 02/04/19 14:37 Intake & Output 02/04/19 02/04/19 02/05/19 06:59 18:59 06:59 Intake Total 700 200 Balance 700 200 Weight 76.657 kg Intake: Intake, IV Titration 580 Amount Sodium Chloride 0.9% 1, 580 000 ml @ 80 mls/hr IV . [id number] [facility] Rx#:[id number] Oral 120 200 Other: Voiding Method Bedside Commode Toilet Bedpan Bedside Commode # Voids 1 2 - Labs CBC & Chem 7: 02/04/19 08:31 02/04/19 08:31 Labs: Abnormal Lab Results - Last 24 Hours (Table) 02/04/19 02/04/19 Range/Units 08:31 08:31 PT 21.7 H (9.0-12.0) sec INR 2.2 H (<1.2) Sodium 132 L (137-145) mmol/L Chloride 96 L (98-107) mmol/L Glucose 146 H (74-99) mg/dL Calcium 10.3 H (8.4-10.2) mg/dL
[2019-02-04] MEDS: SODIUM CHLORIDE 0.9% 1,000 ML IV SCH (10:20)
--- NOTE | 2019-02-04 11:06 | CDI ---
Documentation Clarification Form Date: 02/04/2019 11:04:26 AM From: Donna Chun Admit Date: 02/02/2019 6:20:00 PM Patient Name: Aranza London Visit Number: [id number] ATTENTION: The Clinical Documentation Specialists (CDI) and [facility] Coding Staff appreciate your assistance in clarifying documentation. Please respond to the clarification below the line at the bottom and electronically sign. The CDI & [facility] Coding staff will review the response and follow-up if needed. Please note: Queries are made part of the Legal Health Record. If you have any questions, please contact the author of this message via ITS. Dr. Violette Laguna Atrial Fibrillation is documented in the in the H&P, Consults, and progress notes and requires further specificity. History/Risk Factors: HTN, Dysrythmia, OA, Atrial fib on Coumadin at home Clinical Indicators: EKG/telemetry: none ordered Treatment: Coumadin on hold for surgery Cardizem CD 120 mg PO QD In your professional opinion, can you please clarify the type of Atrial Fibrillation, if known? Chronic/Permanent Paroxysmal Persistent Other, please specify Unable to determine (Last Revision: June 2017) Paroxysmal A fib MTDD
[2019-02-04 12:01] VITALS: BMI 28.1
[2019-02-04] MEDS: ACETAMINOPHEN TAB 325 MG TAB PO PRN (12:21)
--- NOTE | 2019-02-04 14:44 | P.PN ---
Progress Note - Text Progress Note Date: 02/04/19 The patient is seen and examined today at bedside. She is feeling much better with her collar intact now. She has been able to get up out of bed and she is sitting up beside bed in a chair. She's been able to tolerate her regular diet. She's been able to void. She still has some headaches but is much more couple for her. She denies any numbness tingling in her upper extremities. She denies any weakness in her extremities. She denies any blurry vision. On exam she is afebrile stable vital signs. Chest has good excursion with deep inspiration and expiration Her neck has a collar intact. It is a [place] J collar which appears to be fitting well and is comfortable for her. She has good position and stability in the collar. Her upper extremities have 5 out of 5 strength of biceps triceps and deep submergence vehicle operator. Her lower extremity 55 muscle strength 4/5 flexion and EHL. Calves are soft non tender. Her computed tomography scan has been reviewed. I reviewed the scan in regards to her cervical spine she has significant degenerative changes but she also has an acute C2 base the and contoured fracture. There is minimal displacement. There appears to be a fracture at C1 as wellat the base of the arch . Assessment and plan Acute traumatic C2 odontoid fracture Acute traumatic C1 fracture at the base of the arch status post fall the patient is significant improved now that she has a appropriate hard cervical collar intact. I think this is giving her support for her fracture which is helping with her pain and allowing her muscles relaxed so she is alleviating her headache. She needs keep her hard collar intact all of the time 24 7. She has a traction emergency collar at bedside that she can wear when she showers. She is okay to ambulate as long she has a collar intact. Hopefully she can continue to make progress and has good potential of healing her C2 and C1 fractures with conservative treatment using the collar likely for the next 12 weeks. We would need to follow her closely as an outpatient basis to see if there is movement or displacement at the fracture site is then may require further attention or even possibly surgery. I discussed that with her and her daughters today at bedside and they understand. The area to try to continue with conservative treatment especially since the patient is doing significantly better today with her hard collar intact. From a spine standpoint is okay for the patient to be discharged home and I can follow her up in approximately 1 week time for recheck evaluation and repeat x- rays of her cervical spine. She is given appropriate instructions to continue her use of her hard collar all all times. I answered her questions best my ability G understand that she is agreeable.
[2019-02-04] MEDS: WARFARIN 5 MG TAB PO SCH (16:35)
--- NOTE | 2019-02-04 19:28 | P.PN ---
Subjective Progress Note Date: 02/04/19 (Delayed charting seen at 11:45) Principal diagnosis: Neck pain Patient is an 83-year-old female past medical history of hypertension, dyslipidemia, arthritis, atrial fibrillation on Coumadin therapy who presented to the emergency department with complaints of neck pain and headache. She was instructed to come to the hospital by her PCP, Dr. Colon, after he reviewed CT of head and neck taken 01/25 which showed Odontoid and C1 pedicle fracture. She returned to the ED on 02/02. She had a repeat head CT which showed atrophic and small vessel ischemic change without acute intracranial process. Repeat right hand xray showed no acute fracture or dislocation. Blood work demonstrated a hyponatremia at 128 and subtherapeutic INR at 1.5, She was admitted to the trauma service and ortho spine was consulted who recommended conservative management with a hard cervical collar. Her hyponatremia improved greatly with holding her diuretic therapy and continue with IV fluids. Her pain improved greatly with the addition of the cervical collar and her headache resolved. She was finally able to get up and ambulate with the cervical collar in place. Dr. Kowalski has recommended use of the collar 24 7 for approximately 12 weeks as well as close outpatient follow-up to check on the progression of her displaced fracture. Patient seen and examined at bedside. She is still having pain when up and ambulating however this is much improved with initiation of the cervical collar. Her headache is almost completely resolved at this point in time. She states she is feeling much better. She is tolerating Ultram and Tylenol well and states it is controlling her pain. She denies any nausea or vomiting. She is still having some constipation. Objective - Vital Signs Vital signs: Vital Signs Temp 98.0 F 02/04/19 14:37 Pulse 54 L 02/04/19 14:37 Resp 20 02/04/19 14:37 BP 99/61 02/04/19 14:37 Pulse Ox 94 L 02/04/19 14:37 Intake & Output 02/04/19 02/04/19 02/05/19 06:59 18:59 06:59 Intake Total 700 200 Balance 700 200 Weight 76.657 kg Intake: Intake, IV Titration 580 Amount Sodium Chloride 0.9% 1, 580 000 ml @ 80 mls/hr IV . [id number] [facility] Rx#:[id number] Oral 120 200 Other: Voiding Method Bedside Commode Toilet Bedpan Bedside Commode # Voids 1 2 - Exam General: non toxic, no distress, appears at stated age Derm: warm, dry Head: atraumatic, normocephalic, symmetric Eyes: EOMI, no lid lag, anicteric sclera Mouth: no lip lesion, mucus membranes moist, cervical collar in place Cardiovascular: S1S2 reg, no murmur, positive posterior tibial pulse bilateral, Lungs: CTA bilateral, no rhonchi, no rales , no accessory muscle use Abdominal: soft, nontender to palpation, no guarding, no appreciable organomegaly Ext: no gross muscle atrophy, no edema, no contractures Neuro: CN II-XI grossly intact, no focal neuro deficits Psych: Alert, oriented, appropriate affect - Labs CBC & Chem 7: 02/04/19 08:31 02/04/19 08:31 Labs: Abnormal Lab Results - Last 24 Hours (Table) 02/04/19 02/04/19 Range/Units 08:31 08:31 PT 21.7 H (9.0-12.0) sec INR 2.2 H (<1.2) Sodium 132 L (137-145) mmol/L Chloride 96 L (98-107) mmol/L Glucose 146 H (74-99) mg/dL Calcium 10.3 H (8.4-10.2) mg/dL Assessment and Plan Assessment: C2 odontoid fracture at C1 pedicle fracture with intractable pain, improving -Orthopedic spine recommendations appreciated -Cervical collar 24/ for 7 weeks, US ED traction collar when showering, can be out of bed if collar is inplace -PT/OT recs -ultram and tylenol as needed for pain Headache, improving - appears related to neck pain - CT head negative for acute bleed. Fall -Fall precautions -PT/OT P. Atrial fibrillation chronically anticoagulated with Coumadin -Discussed with orthopedic spine and cleared to continue Coumadin therapy -Repeat PT/INR in a.m. -Continue with atenolol and Cardizem Constipation - miralx nightly - dulcolax daily Hyponatremia, improving -Suspect secondary to dehydration -Hold Lasix and Aldactone -Continue with IV fluids X 12 hours - repeat BMP in AM Dyslipidemia -Statin therapy Right hand laceration -Cover with 4 x 4 and tape -Apply Bactroban -Monitor again in the morning if looks worse and will start oral antibiotic DVT prophylaxis: Coumadin Discussed with: Patient Anticipated discharge: 1-[address]: [facility] A total of 35 minutes was spent on the care of this complex patient more than 50% of the time was spent in counseling and care coordination.
[2019-02-04] MEDS: POLYETHYLENE GLYCOL 3350 17 GM POWD.PACK PO SCH (21:28)
[2019-02-05] MEDS: DILTIAZEM CD 120 MG CAP.ER.24H PO SCH (08:29)
[2019-02-05] MEDS: ATENOLOL 25 MG TAB PO SCH (08:29)
[2019-02-05] MEDS: MUPIROCIN 2% OINT 22 GM TUBE TOPICAL SCH ×3 (08:29→22:24)
[2019-02-05] MEDS: ATORVASTATIN 10 MG TAB PO SCH (08:29)
[2019-02-05] MEDS: traMADol 50 MG TAB PO PRN (08:36)
[2019-02-05 09:56] LABS: HCT 39.5 % (34.0-46.0); HGB 12.8 gm/dL (11.4-16.0); MCH 31.7 pg (25.0-35.0); MCHC 32.3 g/dL (31.0-37.0); MCV 98.1 fL (80.0-100.0); Mean Platelet Volume 6.7; Platelet Count 304 k/uL (150-450); RBC 4.03 m/uL (3.80-5.40); RDW 12.7 % (11.5-15.5); WBC 8.5 k/uL (3.8-10.6)
[2019-02-05 09:58] LABS: INR 2.6 (<1.2); Prothrombin Time 24.8 sec (9.0-12.0)
[2019-02-05 10:11] LABS: African American GFR (CKD) >90 (>60 ml/min/1.73 sqM); Anion Gap 10 mmol/L; Blood Urea Nitrogen 17 mg/dL (7-17); Calcium 9.9 mg/dL (8.4-10.2); Carbon Dioxide 24 mmol/L (22-30); Chloride 98 mmol/L (98-107); Glucose 128 mg/dL (74-99); Non-African American GFR(CKD) 78 (>60 ml/min/1.73 sqM); Potassium 4.4 mmol/L (3.5-5.1); Sodium 132 mmol/L (137-145)
[2019-02-05] MEDS: ACETAMINOPHEN TAB 325 MG TAB PO PRN ×2 (11:30→17:45)
[2019-02-05] MEDS: LOSARTAN 50 MG TAB PO SCH (11:32)
--- NOTE | 2019-02-05 13:18 | P.PN ---
Subjective Progress Note Date: 02/05/19 Principal diagnosis: Neck pain Patient is an 83-year-old female past medical history of hypertension, dyslipidemia, arthritis, atrial fibrillation on Coumadin therapy who presented to the emergency department with complaints of neck pain and headache. She was instructed to come to the hospital by her PCP, Dr. Colon, after he reviewed CT of head and neck taken 01/25 which showed Odontoid and C1 pedicle fracture. She returned to the ED on 02/02. She had a repeat head CT which showed atrophic and small vessel ischemic change without acute intracranial process. Repeat right hand xray showed no acute fracture or dislocation. Blood work demonstrated a hyponatremia at 128 and subtherapeutic INR at 1.5, She was admitted to the trauma service and ortho spine was consulted who recommended conservative management with a hard cervical collar. Her hyponatremia improved greatly with holding her diuretic therapy and continue with IV fluids. Her pain improved greatly with the addition of the cervical collar and her headache resolved. She was finally able to get up and ambulate with the cervical collar in place. Dr. Kowalski has recommended use of the collar 01/10 for approximately 12 weeks as well as close outpatient follow-up to check on the progression of her displaced fracture. She did have worsening of her chronic constipation during her hospital stay. Patient seen and examined at bedside. She is still constipated despite miralax, it does not appear dulcolax has been take as a prn yet. Some increased pain today as she was up and moving alot yesterday. No chest pain or shortness of breath. No nausea or vomiting. Headache is back today. Objective - Vital Signs Vital signs: Vital Signs Temp 97.5 F L 02/05/19 06:27 Pulse 60 02/05/19 06:27 Resp 18 02/05/19 06:27 BP 135/60 02/05/19 06:27 Pulse Ox 94 L 02/05/19 06:27 Intake & Output 02/04/19 02/05/19 02/05/19 18:59 06:59 18:59 Intake Total 200 320 320 Balance 200 320 320 Weight 76.657 kg Intake: Intake, IV Titration 320 Amount Sodium Chloride 0.9% 1, 320 000 ml @ 80 mls/hr IV . [id number] [facility] Rx#:[id number] Oral 200 320 Other: Voiding Method Toilet Toilet Bedside Commode Bedside Commode # Voids 2 2 - Exam General: non toxic, no distress, appears at stated age Derm: warm, dry Head: bruising and abrasion over right forehead, normocephalic, symmetric Eyes: EOMI, no lid lag, anicteric sclera Mouth: no lip lesion, mucus membranes moist, cervical collar in place Cardiovascular: S1S2 reg, no murmur, positive posterior tibial pulse bilateral, Lungs: CTA bilateral, no rhonchi, no rales , no accessory muscle use Abdominal: soft, nontender to palpation, no guarding, no appreciable organomegaly Ext: no gross muscle atrophy, no edema, no contractures Neuro: CN II-XI grossly intact, no focal neuro deficits Psych: Alert, oriented, appropriate affect - Labs CBC & Chem 7: 02/05/19 09:12 02/05/19 09:12 Labs: Abnormal Lab Results - Last 24 Hours (Table) 02/05/19 02/05/19 Range/Units 09:12 09:12 PT 24.8 H (9.0-12.0) sec INR 2.6 H (<1.2) Sodium 132 L (137-145) mmol/L Glucose 128 H (74-99) mg/dL Assessment and Plan Assessment: C2 odontoid fracture at C1 pedicle fracture with intractable pain, improving -Orthopedic spine recommendations appreciated -Cervical collar / for 7 weeks, ED traction collar when showering, can be out of bed if collar is inplace -PT/OT recs -ultram and tylenol as needed for pain Headache, improving - appears related to neck pain - CT head negative for acute bleed. Constipation - miralx nightly - dulcolax daily - d/w nursing Fall -Fall precautions -PT/OT P. Atrial fibrillation chronically anticoagulated with Coumadin -Discussed with orthopedic spine and cleared to continue Coumadin therapy -Repeat PT/INR in a.m., coumadin dosing per pharmacy -Continue with atenolol and Cardizem Hyponatremia, improving -Suspect secondary to dehydration -Hold Lasix and Aldactone -Continue with IV fluids X 12 hours - repeat BMP in AM Dyslipidemia -Statin therapy Right hand laceration -Cover with 4 x 4 and tape -Apply Bactroban DVT prophylaxis: Coumadin Discussed with: Patient Anticipated discharge: in AM Anticipated discharge place: [facility] A total of 35 minutes was spent on the care of this complex patient more than 50% of the time was spent in counseling and care coordination.
[2019-02-05] MEDS: BISACODYL 5 MG TABLET.DR PO SCH (13:53)
[2019-02-05] MEDS: WARFARIN 5 MG TAB PO SCH (17:47)
[2019-02-05] MEDS ORDERED: LACTULOSE 20 GM/30 ML CUP PO ONE (18:49)
--- NOTE | 2019-02-05 19:55 | XR ---
EXAMINATION TYPE: XR KUB DATE OF EXAM: 02/05/2019 COMPARISON: NONE HISTORY: Constipation TECHNIQUE: Single view supine FINDINGS: There is no sign of intestinal obstruction or pneumoperitoneum. Fecal pattern is normal. Th ere is no sign of a mass. There is multilevel spondylotic change in the lumbar spine. There is right hip prosthesis. There is no evidence of a mass. IMPRESSION: Nonacute abdomen.
[2019-02-05] MEDS: POLYETHYLENE GLYCOL 3350 17 GM POWD.PACK PO SCH (22:24)
[2019-02-05 23:00] VITALS: RESP 16
[2019-02-06 04:05] VITALS: BP 137/71; PULSE 58; TEMP 98.1
[2019-02-06] MEDS: BISACODYL 5 MG TABLET.DR PO SCH (09:09)
[2019-02-06] MEDS: LOSARTAN 50 MG TAB PO SCH (09:09)
[2019-02-06] MEDS: ATENOLOL 25 MG TAB PO SCH (09:09)
[2019-02-06] MEDS: traMADol 50 MG TAB PO PRN (09:09)
[2019-02-06] MEDS: ATORVASTATIN 10 MG TAB PO SCH (09:09)
[2019-02-06] MEDS: DILTIAZEM CD 120 MG CAP.ER.24H PO SCH (09:10)
[2019-02-06] MEDS: MUPIROCIN 2% OINT 22 GM TUBE TOPICAL SCH (09:10)
[2019-02-06] MEDS: ACETAMINOPHEN TAB 325 MG TAB PO PRN (09:17)
[2019-02-06 09:37] LABS: INR 2.5 (<1.2); Prothrombin Time 24.1 sec (9.0-12.0)
--- NOTE | 2019-02-06 12:14 | P.DS ---
Providers Date of admission: 02/02/19 18:20 Expected date of discharge: 02/06/19 Attending physician: Artie Gamez MD Consults: 02/02/19 17:24 Consult Physician Stat Consulting Provider: Gerald Kowalski Consult Reason/Comments: Odontoid fracture, headache, intractable pain Do you want consulting provider notified?: Yes 02/03/19 10:06 Consult Physician Routine Consulting Provider: Christian Moses Consult Reason/Comments: known Do you want consulting provider notified?: Already Contacted 02/03/19 13:02 Consult Physician Routine Consulting Provider: Violette Laguna Consult Reason/Comments: medical management Do you want consulting provider notified?: Already Contacted Primary care physician: Hood Colon Hospital Course: Discharge Diagnosis: C2 odontoid fracture and C1 pedicle fracture with intractable pain Headache, improving Constipation, resolved Fall Paroxysmal atrial fibrillation chronically anticoagulated with Coumadin and c urrently therapeutic Hyponatremia Dyslipidemia Right hand laceration Hospital Course: Patient is an 83-year-old female past medical history of hypertension, dyslipidemia, arthritis, atrial fibrillation on Coumadin therapy who presented to the emergency department with complaints of neck pain and headache. She was instructed to come to the hospital by her PCP, Dr. Colon, after he reviewed CT of head and neck taken 01/25 which showed Odontoid and C1 pedicle fracture. She returned to the ED on 02/02. She had a repeat head CT which showed atrophic and small vessel ischemic change without acute intracranial process. Repeat right hand xray showed no acute fracture or dislocation. Blood work demonstrated a hyponatremia at 128 and subtherapeutic INR at 1.5, She was admitted to the trauma service and ortho spine was consulted who recommended conservative management with a hard cervical collar. Her hyponatremia improved greatly with holding her diuretic therapy and continue with IV fluids. Her pain improved greatly with the addition of the cervical collar and her headache resolved. She was finally able to get up and ambulate with the cervical collar in place. Dr. Kowalski has recommended use of the collar 01/10 for approximately 12 weeks as well as close outpatient follow-up to check on the progression of her displaced fracture. She did have worsening of her chronic constipation during her hospital stay which resolved with agressive bowel regiment. She did devlop some confusion on 02/05 at night which was felt to be related to her opiate pain medications as she has had issues with confusion and pain medications in the past. We will reduce the strength and frequency of the ultram and encourage tylenol use while at [facility]. She did have some fulness behind her right ear drum and was started on flonase. She was determined stable for discharge to [facility]. She will restart her lasix, spironolactone is still on hold. She will follow with Dr. Colon and Dr. Kowalski on 02/13/ at 2:15 pm Patient seen and examined at bedside. No chest pain, SOB, Nausea, ABD pain, Constipation resolved. No new weakness, numbness, right ear fullness intermittent. Vital signs reviewed and stable. General: non toxic, no distress, appears at stated age Derm: warm, dry Head: atraumatic, normocephalic, symmetric Eyes: EOMI, no lid lag, anicteric sclera Ears: Right tympanic membrane with fullness, cone of light intact, no erythema, no blood behind the tympanic membranes, tympanic membrane intact Mouth: no lip lesion, mucus membranes moist Cardiovascular: S1S2 reg, no murmur, positive posterior tibial pulse bilateral, Lungs: CTA bilateral, no rhonchi, no rales , no accessory muscle use Abdominal: soft, nontender to palpation, no guarding, no appreciable organomegaly Ext: no gross muscle atrophy, no edema, no contractures Neuro: Cranial nerves II through XII grossly intact, light touch intact all 4 extremities and bilateral face, muscle strength 5 out of 5 in bilateral upper extremities and 4 and 5 in bilateral lower extremities finger to nose within normal limits bilateral Psych: Alert, oriented, appropriate affect A total of 35 minutes of time were spent preparing this complex discharge summary . Patient Condition at Discharge: Stable Plan - Discharge Summary New Discharge Prescriptions: New Mupirocin 2% Oint [Bactroban 2% Oint] 1 applic TOPICAL TID applic Bisacodyl [Dulcolax] 5 mg PO DAILY PRN tablet. PRN Reason: Constipation Acetaminophen Tab [Tylenol] 650 mg PO Q6HR PRN tab PRN Reason: Pain Scale 1 To 5 traMADol HCl [Ultram] 50 mg PO Q8H PRN #21 tab PRN Reason: Pain Scale 6 To 10 Fluticasone Nasal [place] [Flonase Nasal [place]] 1 spray EA NOSTRIL DAILY #1 bottle Furosemide [Lasix] 20 mg PO DAILY #30 tab Continue Warfarin [Coumadin] 5 mg PO DAILY Diltiazem Cd [Cardizem CD] 120 mg PO DAILY cap.er.24h Simvastatin [Zocor] 20 mg PO DAILY Candesartan Cilexetil [Atacand] 16 mg PO DAILY Atenolol [Tenormin] 25 mg PO DAILY Discontinued Spironolactone [Aldactone] 25 mg PO DAILY Furosemide [Lasix] 20 mg PO DAILY Discharge Medication List Warfarin [Coumadin] 5 mg PO DAILY 03/12/15 [History] Diltiazem Cd [Cardizem CD] 120 mg PO DAILY cap.er.24h 03/15/15 [Rx] Atenolol [Tenormin] 25 mg PO DAILY 02/02/19 [History] Candesartan Cilexetil [Atacand] 16 mg PO DAILY 02/02/19 [History] Simvastatin [Zocor] 20 mg PO DAILY 02/02/19 [History] Acetaminophen Tab [Tylenol] 650 mg PO Q6HR PRN tab 02/06/19 [Rx] Bisacodyl [Dulcolax] 5 mg PO DAILY PRN tablet. 02/06/19 [Rx] Fluticasone Nasal [place] [Flonase Nasal [place]] 1 spray EA NOSTRIL DAILY #1 bottle 02/06/19 [Rx] Furosemide [Lasix] 20 mg PO DAILY #30 tab 02/06/19 [Rx] Mupirocin 2% Oint [Bactroban 2% Oint] 1 applic TOPICAL TID applic 02/06/19 [Rx] traMADol HCl [Ultram] 50 mg PO Q8H PRN #21 tab 02/06/19 [Rx] Follow up Appointment(s)/Referral(s): Hood Colon MD [Primary Care Provider] - 1-2 days Mario Werner PAC [[employer]] - 02/13/19 2:15 pm (Patient may follow up with Mario Werner PA-C or Dr. Jim Kowalski at [facility] in 1 week for further evaluation) Activity/Diet/Wound Care/Special Instructions: Activity: as tolerated with Cervical collar in place Diet: regular Wound Care: Apply Mupirocin to right had wound twice daily until healed Special Instructions: 1. The patient should keep [place] hard cervical collar intact at all times except while bathing 2. While bathing, less robust previously fitted plastic and Styrofoam cervical collar may be worn 3. Patient should avoid excessive active range of motion of the cervical spine 4. Avoid overhead lifting 5. Avoid excessive activities of the bilateral upper extremities
== END 2019-02-06 14:02 | DRG 552 ==
LOC: EC 13:55 → 4MS4W 18:20
PROVIDERS: ADMIT Family Medicine; ATTEND Family Medicine
DX: S12.090A Other displaced fracture of first cervical vertebra, initial encounter for closed fracture (principal); E87.1 Hypo-osmolality and hyponatremia; S12.111A Posterior displaced Type II dens fracture, initial encounter for closed fracture; W19.XXXA Unspecified fall, initial encounter; E78.5 Hyperlipidemia, unspecified; I10 Essential (primary) hypertension; I48.0 Paroxysmal atrial fibrillation; K59.09 Other constipation; M50.323 Other cervical disc degeneration at C6-C7 level; M50.322 Other cervical disc degeneration at C5-C6 level; S00.83XA Contusion of other part of head, initial encounter; S61.411A Laceration without foreign body of right hand, initial encounter; Z79.01 Long term (current) use of anticoagulants; Z79.899 Other long term (current) drug therapy; Z85.3 Personal history of malignant neoplasm of breast; Z87.891 Personal history of nicotine dependence; Z96.641 Presence of right artificial hip joint; Z96.652 Presence of left artificial knee joint; M47.812 Spondylosis without myelopathy or radiculopathy, cervical region; G62.9 Polyneuropathy, unspecified; R41.0 Disorientation, unspecified; T40.605A Adverse effect of unspecified narcotics, initial encounter; R79.1 Abnormal coagulation profile; Z98.49 Cataract extraction status, unspecified eye
CPT/HCPCS: 36415; 70450; 74018; 80048; 80053; 85025; 85027; 85610; 85730; 96372; 96374; 96375; 99285

== ENCOUNTER → 2020-06-22 | Outpatient (CLI) | payer MEDICARE, BC | END | disposition home or self-care (01) | LOC: LABWHC1 15:43 | PROVIDERS: ATTEND Internal Medicine | DX: Z20.822 Contact with and (suspected) exposure to COVID-19 (principal) | CPT/HCPCS: U0003; C9803 ==

== ENCOUNTER 2023-01-01 13:46 | Emergency (ER) | payer MEDICARE, BC ==
[2023-01-01] MEDS ORDERED: SODIUM CHLORIDE 0.9% 1,000 ML IV STA (13:57)
[2023-01-01] MEDS ORDERED: DIPH,PERTUS(ACELL)TETVAC-LF 0.5 ML VIAL IM ONE (13:58)
[2023-01-01 13:59] VITALS: BP 143/87; TEMP 97.2
[2023-01-01] MEDS ORDERED: DILTIAZEM CD 120 MG CAP.ER.24H PO STA (13:59)
[2023-01-01 14:20] LABS: Basophils % (A) 0 %; Eosinophils % (A) 0 %; HCT 36.9 % (34.0-46.0); HGB 12.1 gm/dL (11.4-16.0); Lymphocytes # (A) 0.8 k/uL (1.0-4.8); Lymphocytes % (A) 26 %; MCH 30.2 pg (25.0-35.0); MCHC 32.9 g/dL (31.0-37.0); MCV 91.8 fL (80.0-100.0); Mean Platelet Volume 8.8; Monocytes # (A) 0.3 k/uL (0-1.0); Monocytes % (A) 8 %; Neutrophils % (A) 63 %; Platelet Count 160 k/uL (150-450); RBC 4.02 m/uL (3.80-5.40); RDW 13.6 % (11.5-15.5); WBC 3.1 k/uL (3.8-10.6)
[2023-01-01 14:30] LABS: ALT 19 U/L (4-34); AST 40 U/L (14-36); African American GFR (CKD) 60 (>60 ml/min/1.73 sqM); Albumin 3.4 g/dL (3.5-5.0); Alkaline Phosphatase 52 U/L (38-126); Anion Gap 8 mmol/L; Blood Urea Nitrogen 34 mg/dL (7-17); Carbon Dioxide 22 mmol/L (22-30); Chloride 109 mmol/L (98-107); Glucose 93 mg/dL (74-99); Magnesium 2.1 mg/dL (1.6-2.3); Non-African American GFR(CKD) 52 (>60 ml/min/1.73 sqM); Potassium 3.3 mmol/L (3.5-5.1); Sodium 139 mmol/L (137-145); Total Bilirubin 0.6 mg/dL (0.2-1.3); Total Protein 6.5 g/dL (6.3-8.2)
[2023-01-01 14:44] LABS: INR 3.5 (<1.2); Partial Thromboplastin Time 37.6 sec (22.0-30.0); Prothrombin Time 34.6 sec (10.0-12.5)
[2023-01-01 14:47] LABS: Bacteria,Urine Rare /hpf; Mucus,Urine Rare /hpf; RBC,Urine <1 /hpf (0-5); WBC,Urine 1 /hpf (0-5)
[2023-01-01 15:01] LABS: Appearance,Urine Clear (Clear); Bilirubin,Urine Negative (Negative); Color,Urine Yellow; Glucose,Urine (UA) Negative (Negative); Ketones,Urine 1+ (Negative); PH, Urine 5.5 (5.0-8.0); Protein,Urine 1+ (Negative); Specific Gravity,Urine >1.030 (1.001-1.035)
[2023-01-01 15:02] LABS: Blood,Urine Negative (Negative); Leukocyte Esterase,Urine Negative (Negative); Nitrite,Urine Negative (Negative); Urobilinogen,Urine <2.0 mg/dL (<2.0)
--- NOTE | 2023-01-01 15:02 | CT ---
EXAMINATION TYPE: CT brain demi graham con DATE OF EXAM: 01/01/2023 COMPARISON: 02/02/2019 HISTORY: fall CT DLP: 1260.[address] of the brain was performed. The ventricles, basal cisterns and sulci overlying the cerebral convexities demonstrate mild enlargem ent. There is no evidence for intracranial hemorrhage or sulcal effacement. There is decreased attenuatio n about the periventricular white matter and deep white matter of both cerebral hemispheres, compatib le with chronic small vessel ischemia. No mass effects are seen. If symptoms persist consider MRI. Osseous calvarium is intact. IMPRESSION: 1. Age related atrophic and chronic small vessel ischemic change without acute intracranial process seen at this time. CT Cervical Spine: Unenhanced CT of the cervical spine was performed with bone and soft tissue window settings submitted . Coronal and sagittal reconstruction is obtained. There is normal alignment and prevertebral soft tissues. No evidence for acute cervical fracture . Scattered degenerative disc disease and spondylosis. Biapical scarring. IMPRESSION: 1. No evidence for acute fracture or subluxation of the cervical spine.
--- NOTE | 2023-01-01 15:11 | XR ---
EXAMINATION TYPE: XR ankle complete RT DATE OF EXAM: 01/01/2023 COMPARISON: NONE HISTORY: Pain TECHNIQUE: Frontal, lateral and oblique images of the right ankle are obtained. COMPARISON: None. FINDINGS: There is no acute fracture/dislocation evident. The joint spaces appear within normal boyle its. The overlying soft tissue appears unremarkable. Diffuse bony osteopenia. IMPRESSION: There is no acute fracture or dislocation seen.
--- NOTE | 2023-01-01 15:12 | ED ---
General Adult HPI <RadhacarmenSheldon - Last Filed: 01/01/23 16:34> - General Source: patient, EMS, RN notes reviewed, old records reviewed Mode of arrival: EMS Limitations: no limitations <Ricardo Jiménez - Last Filed: 01/02/23 07:56> - General Chief complaint: Fall Stated complaint: Cardio/Fall,on Thinners Time Seen by Provider: 01/01/23 13:57 - History of Present Illness Initial comments: Patient is an 87-year-old female who presents emergency Department complaining of a fall on blood thinners. Was unwitnessed, however patient is on Coumadin. She lives with family who heard the fall and rushed her bedside. She has a chin laceration as well as a left hand laceration. She has been feeling weak since Saturday and has not taken any of her medications. Her multiple episodes of SVT on the way here but patient does have a history of chronic arrhythmias. Is on Cardizem as well as atenolol which she has not taken. Presents for further evaluation at this time. She has a history of dementia and is a and O times one to 2 and his poor historian. Denies any pain. Does not remember the fall. (Ricardo Jiménez) - Related Data Home Medications Medication Instructions Recorded Confirmed Warfarin [Coumadin] 5 mg PO DAILY 03/12/15 02/02/19 Candesartan Cilexetil [Atacand] 16 mg PO DAILY 02/02/19 02/02/19 Simvastatin [Zocor] 20 mg PO DAILY 02/02/19 02/02/19 atenoloL [Tenormin] 25 mg PO DAILY 02/02/19 02/02/19 Previous Rx's Medication Instructions Recorded Diltiazem Cd [Cardizem CD] 120 mg PO DAILY cap.er.24h 03/15/15 Acetaminophen Tab [Tylenol] 650 mg PO Q6HR PRN tab 02/06/19 Fluticasone Nasal [place] [Flonase 1 spray EA NOSTRIL DAILY #1 bottle 02/06/19 Nasal [place]] Furosemide [Lasix] 20 mg PO DAILY #30 tab 02/06/19 Mupirocin 2% Oint [Bactroban 2% 1 applic TOPICAL TID applic 02/06/19 Oint] bisacodyL [Dulcolax] 5 mg PO DAILY PRN tablet.dr 02/06/19 traMADol HCl [Ultram] 50 mg PO Q8H PRN #21 tab 02/06/19 Nirmatrelvir/Ritonavir [Paxlovid 1 each PO ONCE #1 pack 01/01/23 2X150 mg-100 mg (Eua)] Allergies Allergy/AdvReac Type Severity Reaction Status Date / Time codeine Allergy Nausea & Verified 01/01/23 13:54 Vomiting Review of Systems ROS Other: All systems not noted in ROS Statement are negative. <Sheldon Esaton - Last Filed: 01/01/23 16:34> ROS Other: All systems not noted in ROS Statement are negative. <Ricardo Jiménez - Last Filed: 01/02/23 07:56> ROS Statement: Those systems with pertinent positive or pertinent negative responses have been documented in the HPI. Past Medical History Past Medical History: Atrial Fibrillation, Cancer, Hyperlipidemia, Hypertension Additional Past Medical History / Comment(s): varicose veins,arthritis,breast cancer; pt states she has neuropathy in bilat feet History of Any Multi-Drug Resistant Organisms: None Reported Past Surgical History: Breast Surgery, Joint Replacement, Tonsillectomy Additional Past Surgical History / Comment(s): rt hip replacement, left knee replacement, cataracts, rt partial mastectomy Past Anesthesia/Blood Transfusion Reactions: Postoperative Nausea & Vomiting (PONV) Past Psychological History: No Psychological Hx Reported Smoking Status: Never smoker Past Alcohol Use History: None Reported Past Drug Use History: None Reported - Past Family History Mother Additional Family Medical History / Comment(s): from natrual causes Father Family Medical History: Cancer Additional Family Medical History / Comment(s): lung <Ricardo Jiménez - Last Filed: 01/02/23 07:56> General Exam Limitations: no limitations <Ricardo Jiménez - Last Filed: 01/02/23 07:56> - General Exam Comments Initial Comments: General: Appears in no acute distress. HEAD: Normal with no signs of head trauma. Patient has a chin laceration. EYES: PERRLA, EOMI, conjunctiva normal, no discharge. Pupils are 3 mm equal bilaterally. ENT: Hearing grossly intact, normal oropharynx. Cervical collar in place. RESPIRATORY: Clear breath sounds bilaterally. No wheezes, rales, or rhonchi. C/V: Regular rate and rhythm. S1 and S2 auscultated, no edema, peripheral pulses 2+ and intact throughout ABD: Abd is soft, nontender, nondistended EXT: Normal range of motion, no obvious deformity. Pelvis is stable. Mild right foreleg as well as ankle pain on palpation without any obvious fracture or injury. SKIN: She has a skin laceration, as well as a skin tear over the posterior left wrist. NEURO: Alert and oriented 2. No obvious deficits. (Ricardo Jiménez) Course Vital Signs 01/01/23 01/01/23 01/01/23 13:51 15:54 17:37 Temperature 97.2 F L Pulse Rate 82 77 73 Respiratory 18 17 12 Rate Blood Pressure 143/87 143/87 143/87 O2 Sat by Pulse 97 98 96 Oximetry Medical Decision Making - Lab Data Result diagrams: 01/01/23 14:16 01/01/23 14:16 <Sheldon Easton - Last Filed: 01/01/23 16:34> - Lab Data Result diagrams: 01/01/23 14:16 01/01/23 14:16 - EKG Data -: EKG Interpreted by Me <Ricardo Jiménez - Last Filed: 01/02/23 07:56> - Medical Decision Making I receive this patient has a sign out. Reviewed the studies with the patient and her family at the bedside. The patient is adamant that she would like to go home. I did apply skin glue to the skin tears to the left hand and to the left anterior neck. The patient has had IV fluid. We did give oral dose of potassium. She is counseled to hold Coumadin 1 day as her level is at the upper limit of therapeutic. They were instructed to have a low threshold to return given that the patient has had cold infection and does not appear to be taking normal amounts of fluid at home. They will be vigilant and return if patient is not feeling better or if any new symptoms develop. Was patient admitted / discharged? Hospital course, mention meds given and route, prescriptions, significant lab abnormalities, going to OR and other pertinent info. @ -[Patient was adamant that she was going home, she will return if no improvement or if any worsening. Family does support her decision Undiagnosed new problem with uncertain prognosis? @ -[No] Drug Therapy requiring intensive monitoring for toxicity (Heparin, Nitro, Insulin, Cardizem)? @ -[No] Were any procedures done? @ -[No] Diagnosis/symptom? @ -[Acute fall with skin tears to dorsum of left hand and to left anterior neck. Acute COVID-19 infection Mild dehydration. Mild hypokalemia Acute, or Chronic, or Acute on Chronic? @ -Acute Uncomplicated (without systemic symptoms) or Complicated (systemic symptoms)? @ -[Uncomplicated Side effects of treatment? @ -[No] Exacerbation, Progression, or Severe Exacerbation? @ -[No] Poses a threat to life or bodily function? How? (Chest pain, [place], NH, pneumonia, PE, COPD, DKA, ARF, appy, cholecystitis, CVA, Diverticulitis, Homicidal, Suicidal, threat to staff... and all critical care pts) @ -[There is a low but non-0 threat to life given the patient's age and covid infection (Sheldon Easton) Was pt. sent in by a medical professional or institution (, PA, SENIOR SEARCH MARKETING ANALYST, urgent care, hospital, or [facility]...) When possible be specific @ -No Did you speak to anyone other than the patient for history (EMS, parent, family, police, friend...)? What history was obtained from this source @ -No Did you review nursing and triage notes (agree or disagree)? Why? @ -I reviewed and agree with nursing and triage notes Were old charts reviewed (outside hosp., previous admission, EMS record, old EKG, old radiological studies, urgent care reports/EKG's, [facility] records)? Report findings @ -Old charts reviewed. Differential Diagnosis (chest pain, altered mental status, abdominal pain women, abdominal pain men, vaginal bleeding, weakness, fever, dyspnea, syncope, headache, dizziness, GI bleed, back pain, seizure, CVA, palpatations, mental health, musculoskeletal)? @ -Differential Musculoskeletal Muscular strain, contusion, ligament sprain, fracture, arthritis, septic arthritis, bursitis, cellulitis, muscle spasm, nerve compression, DVT, arterial occlusion, herpes zoster, electrolyte abnormality, tumor.... This is not meant to be in all inclusive list Differential Weakness: Hypoglycemia, shock, sepsis, hyponatremia, anemia, infection, NH, ETOH, adverse medicine reaction, overdose, stroke, this is not meant to be an all-inclusive list. EKG interpreted by me (3pts min.). @ -As above X-rays interpreted by me (1pt min.). @ -Pending CT interpreted by me (1pt min.). @ -Pending U/S interpreted by me (1pt. min.). @ -None done What testing was considered but not performed or refused? (CT, X-rays, U/S, labs)? Why? @ -None What meds were considered but not given or refused? Why? @ -None Did you discuss the management of the patient with other professionals (professionals i.e. Dr., PA, SENIOR SEARCH MARKETING ANALYST, lab, RT, psych nurse, addiction social worker, gambreler helper, teacher, staff command and control officer, case management assistant)? Give summary @ -No Was smoking cessation discussed for >3mins.? @ -No Was critical care preformed (if so, how long)? @ -No Were there social determinants of health that impacted care today? How? (Homelessness, low income, unemployed, alcoholism, drug addiction, transp ortation, low edu. Level, literacy, decrease access to med. care, halfway, rehab)? @ -No Was there de-escalation of care discussed even if they declined (Discuss DNR or withdrawal of care, Hospice)? DNR status @ -No What co-morbidities impacted this encounter? (DM, HTN, Smoking, COPD, CAD, Cancer, CVA, ARF, Chemo, Hep., AIDS, mental health diagnosis, sleep apnea, morbid obesity)? @ -None Was patient admitted / discharged? Hospital course, mention meds given and route, prescriptions, significant lab abnormalities, going to OR and other pertinent info. @ -Based on the patient's presentation and physical exam, I'm concerned for possible genetic injury concerning for blood thinners. No known loss of consciousness. Does not meet trauma activation criteria. We will obtain CT imaging and x-rays. Weakness labs also be obtained. Patiently given a dose of her normal Cardizem. Patient was in agreement with this plan. Vital signs within acceptable limits. EKG showed no signs of acute ischemia. At this time, patient is pending completion of workup. Patient signed out to Dr. Easton Undiagnosed new problem with uncertain prognosis? @ -No Drug Therapy requiring intensive monitoring for toxicity (Heparin, Nitro, Insulin, Cardizem)? @ -No Were any procedures done? @ -No (Ricardo Jiménez) - Lab Data Lab Results 01/01/23 01/01/23 01/01/23 Range/Units 14:16 14:16 14:16 WBC 3.1 L (3.8-10.6) k/uL RBC 4.02 (3.80-5.40) m/uL Hgb 12.1 (11.4-16.0) gm/dL Hct 36.9 (34.0-46.0) % MCV 91.8 (80.0-100.0) fL MCH 30.2 (25.0-35.0) pg MCHC 32.9 (31.0-37.0) g/dL RDW 13.6 (11.5-15.5) % Plt Count 160 (150-450) k/uL MPV 8.8 Neutrophils % 63 % Lymphocytes % 26 % Monocytes % 8 % Eosinophils % 0 % Basophils % 0 % Neutrophils # 2.0 (1.3-7.7) k/uL Lymphocytes # 0.8 L (1.0-4.8) k/uL Monocytes # 0.3 (0-1.0) k/uL Eosinophils # 0.0 (0-0.7) k/uL Basophils # 0.0 (0-0.2) k/uL PT 34.6 H (10.0-12.5) sec INR 3.5 H (<1.2) APTT 37.6 H (22.0-30.0) sec Sodium 139 (137-145) mmol/L Potassium 3.3 L (3.5-5.1) mmol/L Chloride 109 H (98-107) mmol/L Carbon Dioxide 22 (22-30) mmol/L Anion Gap 8 mmol/L BUN 34 H (7-17) mg/dL Creatinine 0.97 (0.52-1.04) mg/dL Est GFR (CKD-EPI)AfAm 60 (>60 ml/min/1.73 sqM) Est GFR (CKD-EPI)NonAf 52 (>60 ml/min/1.73 sqM) Glucose 93 (74-99) mg/dL Plasma Lactic Acid Saqib (0.7-2.0) mmol/L Calcium 9.0 (8.4-10.2) mg/dL Magnesium 2.1 (1.6-2.3) mg/dL Total Bilirubin 0.6 (0.2-1.3) mg/dL AST 40 H (14-36) U/L ALT 19 (4-34) U/L Alkaline Phosphatase 52 (38-126) U/L Total Protein 6.5 (6.3-8.2) g/dL Albumin 3.4 L (3.5-5.0) g/dL Urine Color Urine Appearance (Clear) Urine pH (5.0-8.0) Ur Specific [place] (1.001-1.035) Urine Protein (Negative) Urine Glucose (UA) (Negative) Urine Ketones (Negative) Urine Blood (Negative) Urine Nitrite (Negative) Urine Bilirubin (Negative) Urine Urobilinogen (<2.0) mg/dL Ur Leukocyte Esterase (Negative) Urine RBC (0-5) /hpf Urine WBC (0-5) /hpf Urine Bacteria (None) /hpf Urine Mucus (None) /hpf Influenza Type A (PCR) (Not Detectd) Influenza Type B (PCR) (Not Detectd) RSV (PCR) (Not Detectd) SARS-CoV-2 (PCR) (Not Detectd) 01/01/23 01/01/23 01/01/23 Range/Units 14:16 14:16 14:21 WBC (3.8-10.6) k/uL RBC (3.80-5.40) m/uL Hgb (11.4-16.0) gm/dL Hct (34.0-46.0) % MCV (80.0-100.0) fL MCH (25.0-35.0) pg MCHC (31.0-37.0) g/dL RDW (11.5-15.5) % Plt Count (150-450) k/uL MPV Neutrophils % % Lymphocytes % % Monocytes % % Eosinophils % % Basophils % % Neutrophils # (1.3-7.7) k/uL Lymphocytes # (1.0-4.8) k/uL Monocytes # (0-1.0) k/uL Eosinophils # (0-0.7) k/uL Basophils # (0-0.2) k/uL PT (10.0-12.5) sec INR (<1.2) APTT (22.0-30.0) sec Sodium (137-145) mmol/L Potassium (3.5-5.1) mmol/L Chloride (98-107) mmol/L Carbon Dioxide (22-30) mmol/L Anion Gap mmol/L BUN (7-17) mg/dL Creatinine (0.52-1.04) mg/dL Est GFR (CKD-EPI)AfAm (>60 ml/min/1.73 sqM) Est GFR (CKD-EPI)NonAf (>60 ml/min/1.73 sqM) Glucose (74-99) mg/dL Plasma Lactic Acid Saqib 1.9 (0.7-2.0) mmol/L Calcium (8.4-10.2) mg/dL Magnesium (1.6-2.3) mg/dL Total Bilirubin (0.2-1.3) mg/dL AST (14-36) U/L ALT (4-34) U/L Alkaline Phosphatase (38-126) U/L Total Protein (6.3-8.2) g/dL Albumin (3.5-5.0) g/dL Urine Color Yellow Urine Appearance Clear (Clear) Urine pH 5.5 (5.0-8.0) Ur Specific [place] >1.030 (1.001-1.035) Urine Protein 1+ (Negative) Urine Glucose (UA) Negative (Negative) Urine Ketones 1+ (Negative) Urine Blood Negative (Negative) Urine Nitrite Negative (Negative) Urine Bilirubin Negative (Negative) Urine Urobilinogen <2.0 (<2.0) mg/dL Ur Leukocyte Esterase Negative (Negative) Urine RBC <1 (0-5) /hpf Urine WBC 1 (0-5) /hpf Urine Bacteria Rare H (None) /hpf Urine Mucus Rare H (None) /hpf Influenza Type A (PCR) Not Detected (Not Detectd) Influenza Type B (PCR) Not Detected (Not Detectd) RSV (PCR) Not Detected (Not Detectd) SARS-CoV-2 (PCR) Detected A (Not Detectd) - EKG Data EKG Comments: 12-lead Electrocardiogram Interpretation Note EKG was reviewed and interpreted by myself. 12-lead ECG performed at 1357 is int erpreted by me as revealing normal sinus rhythm at a rate of 86 beats per minute. [place] is normal. SC interval is 136 ms, QRS duration is 102 ms, QTc is 386 ms.. There were no ST or T wave abnormalities to suggest myocardial ischemia or injury. R wave progression across the precordium was satisfactory. By my interpretation this EKG is non-diagnostic for acute ischemia. (Ricardo Jiménez) Disposition Is patient prescribed a controlled substance at d/c from ED?: No <Sheldon Easton - Last Filed: 01/01/23 16:34> <Ricardo Jiménez - Last Filed: 01/02/23 07:56> Clinical Impression: COVID-19, Fall, Skin tear Disposition: HOME SELF-CARE Condition: Fair Instructions (If sedation given, give patient instructions): Fall Prevention for Older Adults (ED), COVID-19 (Coronavirus Disease 2019) (ED) Prescriptions: Nirmatrelvir/Ritonavir [Paxlovid 2X150 mg-100 mg (Eua)] 1 each PO ONCE #1 pack Referrals: None,Stated [REFERRING] - 1-2 days
--- NOTE | 2023-01-01 15:13 | XR ---
EXAMINATION TYPE: XR pelvis AP view DATE OF EXAM: 01/01/2023 CLINICAL HISTORY: pain TECHNIQUE: Single view the pelvis is submitted. FINDINGS: No evidence for fracture, dislocation or bony lesion. Total right hip stasis is in place. Mild degenerative narrowing left hip joint space. SI joints appear symmetric. IMPRESSION: 1. No acute fracture or dislocation seen. ICD 10 NO FRACTURE, INITIAL EVALUATION
--- NOTE | 2023-01-01 15:13 | XR ---
EXAMINATION TYPE: XR tibia fibula RT DATE OF EXAM: 01/01/2023 CLINICAL HISTORY: pain TECHNIQUE: AP and lateral images of the right tibia and fibula are obtained. COMPARISON: None. FINDINGS: There is no acute fracture/dislocation evident. The joint spaces appear within normal boyle its. The overlying soft tissue appears unremarkable. IMPRESSION: There is no acute fracture or dislocation seen. ICD 10 NO FRACTURE, INITIAL EVALUATION
[2023-01-01] MEDS ORDERED: TOPICAL SKIN ADHESIVE 1 EACH AMP TOPICAL ONE (15:23)
[2023-01-01] MEDS ORDERED: POTASSIUM BICARBONATE/CIT AC 20 MEQ TABLET.EFF PO ONE (15:30)
[2023-01-01 17:49] VITALS: PULSE 73; RESP 12
== END 2023-01-01 17:39 | disposition home or self-care (01) ==
LOC: EC 13:46
DX: U07.1 COVID-19 (principal); S01.81XA Laceration without foreign body of other part of head, initial encounter; S61.412A Laceration without foreign body of left hand, initial encounter; E78.5 Hyperlipidemia, unspecified; I10 Essential (primary) hypertension; I48.91 Unspecified atrial fibrillation; Z79.01 Long term (current) use of anticoagulants; Z79.899 Other long term (current) drug therapy; Z88.5 Allergy status to narcotic agent; Z20.822 Contact with and (suspected) exposure to COVID-19; Z23 Encounter for immunization; W18.39XA Other fall on same level, initial encounter
CPT/HCPCS: 36415; 70450; 72125; 72170; 80053; 81001; 83605; 83735; 85025; 85610; 85730; 87636; 90471; 90715; 93005; 96360; 99285